=== PATIENT | female | born 1975 | race Caucasian/White ===

== ENCOUNTER → 2016-09-03 | Outpatient (CLI) | payer OTHER ==
[2016-09-03 09:05] LABS: Carbon Dioxide 22 mmol/L (22-30); Chloride 107 mmol/L (98-107); Glucose 106 mg/dL (74-99); Potassium 4.6 mmol/L (3.5-5.1); Sodium 142 mmol/L (137-145)
[2016-09-03 09:06] LABS: ALT 29 U/L (9-52); AST 17 U/L (14-36); Alkaline Phosphatase 102 U/L (38-126); Anion Gap 13 mmol/L; Blood Urea Nitrogen 14 mg/dL (7-17); Calcium 9.3 mg/dL (8.4-10.2); Cholesterol 177 mg/dL (<200); HDL Cholesterol 50 mg/dL (40-60); Non-African American GFR(MDRD) >60 (>60 ml/min/1.73 sqM); Total Bilirubin 0.4 mg/dL (0.2-1.3); Total Protein 7.4 g/dL (6.3-8.2); Triglycerides 117 mg/dL (<150)
== END | disposition home or self-care (01) ==
LOC: LABWHC1 08:18
PROVIDERS: ATTEND Internal Medicine Endocrinology, Diabetes & Metabolism
DX: E11.65 Type 2 diabetes mellitus with hyperglycemia (principal)
CPT/HCPCS: 36415; 80053; 80061; 82043

== ENCOUNTER → 2017-06-11 | Outpatient (CLI) | payer OTHER ==
[2017-06-11 09:18] LABS: ALT 24 U/L (9-52); AST 18 U/L (14-36); Albumin 3.9 g/dL (3.5-5.0); Alkaline Phosphatase 114 U/L (38-126); Anion Gap 10 mmol/L; Blood Urea Nitrogen 14 mg/dL (7-17); Calcium 8.8 mg/dL (8.4-10.2); Carbon Dioxide 26 mmol/L (22-30); Chloride 104 mmol/L (98-107); Cholesterol 153 mg/dL (<200); Glucose 111 mg/dL (74-99); HDL Cholesterol 47 mg/dL (40-60); LDL Cholesterol,Calculated 87 mg/dL (0-99); Potassium 4.4 mmol/L (3.5-5.1); Sodium 140 mmol/L (137-145); Total Bilirubin 0.2 mg/dL (0.2-1.3); Total Protein 6.9 g/dL (6.3-8.2); Triglycerides 96 mg/dL (<150)
== END | disposition home or self-care (01) ==
LOC: LABWHC1 08:02
PROVIDERS: ATTEND Internal Medicine Endocrinology, Diabetes & Metabolism
DX: E03.8 Other specified hypothyroidism (principal); E11.65 Type 2 diabetes mellitus with hyperglycemia
CPT/HCPCS: 36415; 80053; 80061; 84443

== ENCOUNTER → 2017-08-27 | Outpatient (CLI) | payer OTHER ==
--- NOTE | 2017-08-28 09:58 | MM ---
Reason for exam: screening (asymptomatic). Last mammogram was performed 5 years and 2 months ago. Physical Findings: A clinical breast exam by your physician is recommended on an annual basis and results should be correlated with mammographic findings. MG 3D Screening Mammo W/Cad Bilateral CC and MLO view(s) were taken. Prior study comparison: June 16, 2012, bilateral digital screening mammo w/CAD. The breast tissue is heterogeneously dense. This may lower the sensitivity of mammography. There is no discrete abnormality. No significant changes when compared with prior studies. ASSESSMENT: Negative, BI-RAD 1 RECOMMENDATION: Routine screening mammogram of both breasts in 1 year.
== END | disposition home or self-care (01) ==
LOC: RADMAMWWP 06:58
PROVIDERS: ATTEND Obstetrics & Gynecology
DX: Z12.31 Encounter for screening mammogram for malignant neoplasm of breast (principal)
CPT/HCPCS: 77063; 77067

== ENCOUNTER → 2017-11-20 | Outpatient (CLI) | payer OTHER ==
[2017-11-20 08:59] LABS: ALT 28 U/L (9-52); AST 21 U/L (14-36); Albumin 3.7 g/dL (3.5-5.0); Alkaline Phosphatase 89 U/L (38-126); Anion Gap 7 mmol/L; Blood Urea Nitrogen 12 mg/dL (7-17); Carbon Dioxide 26 mmol/L (22-30); Chloride 105 mmol/L (98-107); Cholesterol 164 mg/dL (<200); Glucose 116 mg/dL (74-99); HDL Cholesterol 52 mg/dL (40-60); LDL Cholesterol,Calculated 88 mg/dL (0-99); Potassium 4.5 mmol/L (3.5-5.1); Sodium 138 mmol/L (137-145); Total Bilirubin 0.2 mg/dL (0.2-1.3); Total Protein 6.8 g/dL (6.3-8.2); Triglycerides 118 mg/dL (<150)
[2017-11-20 16:02] LABS: Hemoglobin A1C 6.5 % (4.0-6.0)
[2017-11-20 17:03] LABS: Vitamin D 25 Hydroxy 16.4 ng/mL (30.0-100.0)
== END | disposition home or self-care (01) ==
LOC: LABWHC1 07:54
PROVIDERS: ATTEND Internal Medicine Endocrinology, Diabetes & Metabolism
DX: E11.65 Type 2 diabetes mellitus with hyperglycemia (principal); E03.8 Other specified hypothyroidism
CPT/HCPCS: 36415; 80053; 80061; 82043; 82306; 82570; 82607; 83036; 84443

== ENCOUNTER 2020-04-15 04:48 | Emergency (ER) | payer BC ==
--- NOTE | 2020-04-15 05:14 | ED ---
Abdominal Pain HPI - General Source: patient Mode of arrival: ambulatory Limitations: no limitations - History of Present Illness MD Complaint: abdominal pain Onset/Timin -: hour(s) Location: RUQ, epigastric Radiation: back Migration to: no migration Severity: severe Quality: aching Consistency: constant Improves With: nothing Worsens With: nothing Associated Symptoms: nausea <Eagle Ge - Last Filed: 04/15/20 06:31> <Latrell Martinez - Last Filed: 04/15/20 08:14> - General Chief Complaint: Abdominal Pain Stated Complaint: Abdominal pain, vomiting Time Seen by Provider: 04/15/20 04:53 - History of Present Illness Initial Comments: This patient is a 44-year-old woman presenting to be evaluated for upper abdominal pain. She states that it came on after she had eaten dinner, and has gotten progressively worse over the course of tonight. She has also developed nausea and vomiting. (Eagle Ge) - Related Data Home Medications Medication Instructions Recorded Confirmed Cetirizine HCl 10 mg PO HS 04/15/20 04/15/20 Levothyroxine Sodium [Synthroid] 150 mcg PO DAILY 04/15/20 04/15/20 Multivitamins, Thera [Multivitamin 1 tab PO DAILY 04/15/20 04/15/20 (formulary)] Naproxen Sodium 550 mg PO DAILY PRN 04/15/20 04/15/20 Omeprazole 40 mg PO HS 04/15/20 04/15/20 buPROPion HCL [buPROPion HCL SR] 150 mg PO BID 04/15/20 04/15/20 lisinopriL [Zestril] 5 mg PO HS 04/15/20 04/15/20 metFORMIN HCL ER [Glucophage Xr] 500 mg PO HS 04/15/20 04/15/20 Previous Rx's Medication Instructions Recorded Ondansetron [Zofran] 4 - 8 mg PO Q8HR PRN #15 tab 04/15/20 traMADol HCl [Ultram] 50 - 100 mg PO Q6H PRN #15 tab 04/15/20 Allergies Allergy/AdvReac Type Severity Reaction Status Date / Time No Known Allergies Allergy Verified 04/15/20 06:44 Review of Systems ROS Other: All systems not noted in ROS Statement are negative. Constitutional: Denies: fever, chills Respiratory: Denies: cough, dyspnea Cardiovascular: Denies: chest pain, palpitations Gastrointestinal: Reports: abdominal pain, nausea, vomiting. Denies: diarrhea, constipation, hematemesis, melena, hematochezia Genitourinary: Denies: dysuria, frequency, hematuria Musculoskeletal: Denies: back pain Skin: Denies: rash Neurological: Denies: headache, weakness, numbness <Eagle Ge - Last Filed: 04/15/20 06:31> ROS Other: All systems not noted in ROS Statement are negative. <Latrell Martinez - Last Filed: 04/15/20 08:14> ROS Statement: Those systems with pertinent positive or pertinent negative responses have been documented in the HPI. Past Medical History History of Any Multi-Drug Resistant Organisms: None Reported Past Psychological History: Depression Smoking Status: Never smoker Past Alcohol Use History: Rare Past Drug Use History: None Reported <RadhaEagle beal - Last Filed: 04/15/20 06:31> General Exam Limitations: no limitations General appearance: alert, in no apparent distress Head exam: Present: atraumatic, normocephalic Eye exam: Present: normal appearance. Absent: scleral icterus, conjunctival injection Respiratory exam: Present: normal lung sounds bilaterally. Absent: respiratory distress, wheezes, rales, rhonchi, stridor Cardiovascular Exam: Present: regular rate, normal rhythm, normal heart sounds. Absent: systolic murmur, diastolic murmur, rubs, gallop GI/Abdominal exam: Present: soft, tenderness, normal bowel sounds. Absent: distended, guarding, rebound, rigid, mass, pulsatile mass, hernia Extremities exam: Present: normal inspection, normal capillary refill. Absent: pedal edema, calf tenderness Back exam: Present: normal inspection. Absent: CVA tenderness (R), CVA tenderness (L) Neurological exam: Present: alert Skin exam: Present: warm, dry, intact, normal color. Absent: rash <Eagle Ge - Last Filed: 04/15/20 06:31> Course Vital Signs 04/15/20 04/15/20 04:52 06:21 Temperature 98.4 F Pulse Rate 98 90 Respiratory 20 18 Rate Blood Pressure 148/74 151/90 O2 Sat by Pulse 98 100 Oximetry Medical Decision Making - Lab Data Result diagrams: 04/15/20 05:13 04/15/20 05:13 <RadhaEagle beal - Last Filed: 04/15/20 06:31> - Lab Data Result diagrams: 04/15/20 05:13 04/15/20 05:13 <Latrell Martinez - Last Filed: 04/15/20 08:14> - Medical Decision Making The patient was seen and examined. Report was received from previous shift. Her computed tomography scan of the abdomen and pelvis did show gallstones. Her laboratory showed some anemia but no elevation of liver function studies. The gallbladder ultrasound came back showing multiple gallstones with the stone in the gallbladder neck but no pericholecystic fluid or gallbladder wall thickening. Common bile duct is normal. The patient is feeling much improved with Watkins. She refuses an IV as she states that she is scared of getting IVs and will have a panic attack. She appears stable for discharge home and outpatient surgical follow-up. She understands and agrees with this plan and leaves in no severe distress. Diet therapy is discussed and ultimately detail. Return parameters are discussed. (Latrell Martinez) - Lab Data Lab Results 04/15/20 04/15/20 04/15/20 Range/Units 05:13 05:13 05:47 WBC 9.4 (3.8-10.6) k/uL RBC 4.96 (3.80-5.40) m/uL Hgb 9.6 L (11.4-16.0) gm/dL Hct 31.4 L (34.0-46.0) % MCV 63.3 L (80.0-100.0) fL MCH 19.4 L (25.0-35.0) pg MCHC 30.6 L (31.0-37.0) g/dL RDW 18.7 H (11.5-15.5) % Plt Count 525 H (150-450) k/uL MPV 6.4 Neutrophils % 61 % Lymphocytes % 28 % Monocytes % 6 % Eosinophils % 2 % Basophils % 1 % Neutrophils # 5.8 (1.3-7.7) k/uL Lymphocytes # 2.6 (1.0-4.8) k/uL Monocytes # 0.5 (0-1.0) k/uL Eosinophils # 0.2 (0-0.7) k/uL Basophils # 0.1 (0-0.2) k/uL Hypochromasia Marked Poikilocytosis Slight Anisocytosis Slight Microcytosis Marked Sodium 137 (137-145) mmol/L Potassium 4.5 (3.5-5.1) mmol/L Chloride 104 (98-107) mmol/L Carbon Dioxide 24 (22-30) mmol/L Anion Gap 9 mmol/L BUN 14 (7-17) mg/dL Creatinine 0.84 (0.52-1.04) mg/dL Est GFR (CKD-EPI)AfAm >90 (>60 ml/min/1.73 sqM) Est GFR (CKD-EPI)NonAf 84 (>60 ml/min/1.73 sqM) Glucose 127 H (74-99) mg/dL Calcium 9.5 (8.4-10.2) mg/dL Total Bilirubin 0.3 (0.2-1.3) mg/dL AST 30 (14-36) U/L ALT 24 (4-34) U/L Alkaline Phosphatase 93 (38-126) U/L Total Protein 7.6 (6.3-8.2) g/dL Albumin 4.2 (3.5-5.0) g/dL Amylase 59 (30-110) U/L Lipase 165 (23-300) U/L Urine Color Yellow Urine Appearance Clear (Clear) Urine pH 5.5 (5.0-8.0) Ur Specific [place] 1.032 (1.001-1.035) Urine Protein Trace H (Negative) Urine Glucose (UA) Negative (Negative) Urine Ketones Negative (Negative) Urine Blood Negative (Negative) Urine Nitrite Negative (Negative) Urine Bilirubin Negative (Negative) Urine Urobilinogen <2.0 (<2.0) mg/dL Ur Leukocyte Esterase Negative (Negative) Urine HCG, Qual (Not Detectd) 04/15/20 Range/Units 05:47 WBC (3.8-10.6) k/uL RBC (3.80-5.40) m/uL Hgb (11.4-16.0) gm/dL Hct (34.0-46.0) % MCV (80.0-100.0) fL MCH (25.0-35.0) pg MCHC (31.0-37.0) g/dL RDW (11.5-15.5) % Plt Count (150-450) k/uL MPV Neutrophils % % Lymphocytes % % Monocytes % % Eosinophils % % Basophils % % Neutrophils # (1.3-7.7) k/uL Lymphocytes # (1.0-4.8) k/uL Monocytes # (0-1.0) k/uL Eosinophils # (0-0.7) k/uL Basophils # (0-0.2) k/uL Hypochromasia Poikilocytosis Anisocytosis Microcytosis Sodium (137-145) mmol/L Potassium (3.5-5.1) mmol/L Chloride (98-107) mmol/L Carbon Dioxide (22-30) mmol/L Anion Gap mmol/L BUN (7-17) mg/dL Creatinine (0.52-1.04) mg/dL Est GFR (CKD-EPI)AfAm (>60 ml/min/1.73 sqM) Est GFR (CKD-EPI)NonAf (>60 ml/min/1.73 sqM) Glucose (74-99) mg/dL Calcium (8.4-10.2) mg/dL Total Bilirubin (0.2-1.3) mg/dL AST (14-36) U/L ALT (4-34) U/L Alkaline Phosphatase (38-126) U/L Total Protein (6.3-8.2) g/dL Albumin (3.5-5.0) g/dL Amylase (30-110) U/L Lipase (23-300) U/L Urine Color Urine Appearance (Clear) Urine pH (5.0-8.0) Ur Specific [place] (1.001-1.035) Urine Protein (Negative) Urine Glucose (UA) (Negative) Urine Ketones (Negative) Urine Blood (Negative) Urine Nitrite (Negative) Urine Bilirubin (Negative) Urine Urobilinogen (<2.0) mg/dL Ur Leukocyte Esterase (Negative) Urine HCG, Qual Not Detected (Not Detectd) Disposition <Eagle Ge - Last Filed: 04/15/20 06:31> Is patient prescribed a controlled substance at d/c from ED?: Yes When asked, does pt state using other controlled substances?: No If prescribed controlled substance>3 days was MAPS reviewed?: Prescribed <3 Days Time of Disposition: 08:12 <Latrell Martinez - Last Filed: 04/15/20 08:14> Clinical Impression: Gallbladder colic, Gallstone, Acute abdominal pain, Hypertension, Anemia Disposition: HOME SELF-CARE Condition: Good Instructions (If sedation given, give patient instructions): Abdominal Pain (ED ), Gallstones (ED) Prescriptions: traMADol HCl [Ultram] 50 - 100 mg PO Q6H PRN #15 tab PRN Reason: Pain Ondansetron [Zofran] 4 - 8 mg PO Q8HR PRN #15 tab PRN Reason: Nausea Referrals: Tha Valle DO [Primary Care Provider] - 1-2 days Bon Khan DO [Doctor of Osteopathic Medicine] - 1-2 days
--- NOTE | 2020-04-15 05:48 | CT ---
EXAM: CT Abdomen and Pelvis Without Intravenous Contrast CLINICAL HISTORY: ITS.REASON CT Reason: abdominal pain TECHNIQUE: Axial computed tomography images of the abdomen and pelvis without intravenous contrast. CTDI is 32.589 mGy and DLP is 1699.9 mGy-cm. This CT exam was performed using one or more of the following dose reduction techniques: automated exposure control, adjustment of the mA and/or kV according to patient size, and/or use of iterative reconstruction technique. COMPARISON: No relevant prior studies available. FINDINGS: Lung bases: Unremarkable. No mass. No consolidation. ABDOMEN: Liver: Unremarkable. Gallbladder and bile ducts: Minimally calcified gallstones layering posteriorly in the gallbladder, extending to the gallbladder neck. No definite CT evidence for pericholecystic fluid or biliary dilatation. Pancreas: Unremarkable. No ductal dilation. Spleen: Unremarkable. No splenomegaly. Adrenals: Unremarkable. No mass. Kidneys and ureters: Unremarkable. No obstructing stones. No hydronephrosis. Stomach and bowel: Evaluation of the bowel mucosa is slightly limited without contrast; however, no definite focal asymmetry suggested. No evidence for bowel obstruction. PELVIS: Appendix: A normal caliber appendix incidentally noted inferiorly from the cecum in the right pelvis. Bladder: Unremarkable. No stones. Reproductive: Calcification in the left adnexa is presumed incidental. Detailed evaluation is limited. The unenhanced uterus and right adnexa is unremarkable. ABDOMEN and PELVIS: Intraperitoneal space: Unremarkable. No free air. No significant fluid collection. Bones/joints: No acute fracture. No dislocation. Soft tissues: Fat containing umbilical hernia Vasculature: Unremarkable. No abdominal aortic aneurysm. Lymph nodes: Unremarkable. No enlarged lymph nodes. IMPRESSION: 1. Minimally calcified gallstones layering posteriorly in the gallbladder, extending to the gallbladder neck. No definite CT evidence for pericholecystic fluid or biliary dilatation. If there is right upper quadrant tenderness or concern for acute cholecystitis, right upper quadrant ultrasound may provide additional detail in this region, as clinically appropriate. 2. Evaluation of the bowel mucosa is slightly limited without contrast; however, no definite focal asymmetry suggested. No evidence for bowel obstruction. No free intraperitoneal fluid or pneumoperitoneum. Normal caliber appendix incidentally noted.
[2020-04-15 05:50] LABS: ALT 24 U/L (4-34); AST 30 U/L (14-36); African American GFR (CKD) >90 (>60 ml/min/1.73 sqM); Albumin 4.2 g/dL (3.5-5.0); Alkaline Phosphatase 93 U/L (38-126); Amylase 59 U/L (30-110); Anion Gap 9 mmol/L; Blood Urea Nitrogen 14 mg/dL (7-17); Calcium 9.5 mg/dL (8.4-10.2); Carbon Dioxide 24 mmol/L (22-30); Chloride 104 mmol/L (98-107); Glucose 127 mg/dL (74-99); Lipase 165 U/L (23-300); Non-African American GFR(CKD) 84 (>60 ml/min/1.73 sqM); Potassium 4.5 mmol/L (3.5-5.1); Sodium 137 mmol/L (137-145); Total Bilirubin 0.3 mg/dL (0.2-1.3); Total Protein 7.6 g/dL (6.3-8.2)
[2020-04-15 05:56] LABS: Anisocytosis Slight; Basophils # (A) 0.1 k/uL (0-0.2); Basophils % (A) 1 %; Eosinophils # (A) 0.2 k/uL (0-0.7); Eosinophils % (A) 2 %; HCT 31.4 % (34.0-46.0); HGB 9.6 gm/dL (11.4-16.0); Hypochromasia Marked; Lymphocytes # (A) 2.6 k/uL (1.0-4.8); Lymphocytes % (A) 28 %; MCH 19.4 pg (25.0-35.0); MCHC 30.6 g/dL (31.0-37.0); MCV 63.3 fL (80.0-100.0); Mean Platelet Volume 6.4; Microcytosis Marked; Monocytes # (A) 0.5 k/uL (0-1.0); Monocytes % (A) 6 %; Neutrophils # (A) 5.8 k/uL (1.3-7.7); Neutrophils % (A) 61 %; Platelet Count 525 k/uL (150-450); Poikilocytosis Slight; RBC 4.96 m/uL (3.80-5.40); RDW 18.7 % (11.5-15.5); WBC 9.4 k/uL (3.8-10.6)
[2020-04-15 06:12] LABS: Appearance,Urine Clear (Clear); Bilirubin,Urine Negative (Negative); Blood,Urine Negative (Negative); Color,Urine Yellow; Glucose,Urine (UA) Negative (Negative); Ketones,Urine Negative (Negative); Leukocyte Esterase,Urine Negative (Negative); Nitrite,Urine Negative (Negative); PH, Urine 5.5 (5.0-8.0); Protein,Urine Trace (Negative); Specific Gravity,Urine 1.032 (1.001-1.035); Urobilinogen,Urine <2.0 mg/dL (<2.0)
[2020-04-15] MEDS ORDERED: HYDROcodone/APAP 5-325MG 1 EACH TAB PO STA (06:14)
[2020-04-15 06:22] VITALS: RESP 18
--- NOTE | 2020-04-15 07:37 | US ---
EXAMINATION TYPE: US abdomen limited DATE OF EXAM: 04/15/2020 COMPARISON: CT earlier today. CLINICAL HISTORY: attention RUQ. Abnormal CT. Abdominal pain radiating to back. EXAM MEASUREMENTS: Liver Length: 10.7 cm Gallbladder Wall: 0.3 cm CBD: 0.3 cm Right Kidney: 10.2 x 5.5 x 5.5 cm Pancreas: visualized portions wnl Liver: wnl Gallbladder: multiple stones with shadowing, there is at least one stone that did not move out of ne ck with multiple different positions. Evidence for sonographic Quinn's sign: Yes CBD: wnl Right Kidney: No hydronephrosis or masses seen Visualized pancreas slightly heterogeneous without mass or ductal dilatation. Visualized liver unrema rkable. Gallbladder shows intraluminal mobile shadowing gallstones. One stone is nonmobile per techno logist towards the gallbladder neck, likely corresponding to coronal image 55. No surrounding fluid. Wall thickness upper limits of normal. Positive sonographic Quinn's sign. No biliary dilatation. No right-sided hydronephrosis. IMPRESSION: Corresponding to CT there are intraluminal gallstones including nonmobile gallstone towar ds gallbladder neck. No convincing secondary ultrasound evidence for acute cholecystitis. However in patient with positive sonographic Quinn sign it cannot be entirely excluded, consider HIDA scan or s urgical exploration based on degree of clinical suspicion.
[2020-04-15 08:24] VITALS: BP 136/84; PULSE 80; TEMP 98
== END 2020-04-15 08:25 | disposition home or self-care (01) ==
LOC: EC 04:48
DX: K80.20 Calculus of gallbladder without cholecystitis without obstruction (principal); F32.9 Major depressive disorder, single episode, unspecified; D64.9 Anemia, unspecified; I10 Essential (primary) hypertension; Z79.899 Other long term (current) drug therapy
CPT/HCPCS: 36415; 74176; 76705; 80053; 81003; 81025; 82150; 83690; 85025; 99284

== ENCOUNTER 2020-05-08 21:44 | Emergency (ER) | payer BC ==
[2020-05-08] MEDS ORDERED: PANTOPRAZOLE 40 MG/10 ML VIAL IVP STA (22:27)
[2020-05-08] MEDS ORDERED: MORPHINE SULFATE 4 MG/ML SYRINGE IV STA (22:27)
[2020-05-08] MEDS ORDERED: KETOROLAC 15 MG/ML 1 ML VIAL IVP STA (22:27)
[2020-05-08] MEDS ORDERED: SODIUM CHLORIDE 0.9% 1,000 ML IV STA (22:27)
[2020-05-08] MEDS ORDERED: ONDANSETRON 4 MG/2 ML VIAL IVP STA (22:27)
--- NOTE | 2020-05-08 22:30 | ED ---
Abdominal Pain HPI - General Chief Complaint: Abdominal Pain Stated Complaint: Abd/Back Pain Time Seen by Provider: 05/08/20 22:26 Source: patient, RN notes reviewed, old records reviewed Mode of arrival: ambulatory Limitations: no limitations - History of Present Illness Initial Comments: This is a 44-year-old female for ER for evaluation regarding abdominal pain. History of biliary colic history of gallbladder disease. Patient is scheduled for surgery this week. Patient states pain is his increasing or worsening at home. Otherwise no new symptoms, pain is just like her prior gallbladder pain. She is taking Ultram with no help. Denying fevers having normal bowel movements and is tolerating food and water at home Complaint: abdominal pain (Right upper quadrant) -: month(s) Location: LUQ Radiation: RUQ Migration to: epigastric Severity: moderate Severity scale (1-10): 6 Quality: cramping, sharp Consistency: constant Improves With: nothing Worsens With: eating Context: recent surgery/procedure (Surgery plan for this week) Associated Symptoms: nausea - Related Data Home Medications Medication Instructions Recorded Confirmed Cetirizine HCl 10 mg PO HS 04/15/20 04/15/20 Levothyroxine Sodium [Synthroid] 150 mcg PO DAILY 04/15/20 04/15/20 Multivitamins, Thera [Multivitamin 1 tab PO DAILY 04/15/20 04/15/20 (formulary)] Naproxen Sodium 550 mg PO DAILY PRN 04/15/20 04/15/20 Omeprazole 40 mg PO HS 04/15/20 04/15/20 buPROPion HCL [buPROPion HCL SR] 150 mg PO BID 04/15/20 04/15/20 lisinopriL [Zestril] 5 mg PO HS 04/15/20 04/15/20 metFORMIN HCL ER [Glucophage Xr] 500 mg PO HS 04/15/20 04/15/20 Previous Rx's Medication Instructions Recorded Ondansetron [Zofran] 4 - 8 mg PO Q8HR PRN #15 tab 04/15/20 traMADol HCl [Ultram] 50 - 100 mg PO Q6H PRN #15 tab 04/15/20 HYDROcodone/APAP 5-325MG [[place] 1 tab PO Q6HR PRN #12 tab 05/09/20 5-325] Allergies Allergy/AdvReac Type Severity Reaction Status Date / Time No Known Allergies Allergy Verified 04/15/20 06:44 Review of Systems ROS Statement: Those systems with pertinent positive or pertinent negative responses have been documented in the HPI. ROS Other: All systems not noted in ROS Statement are negative. Past Medical History Additional Past Medical History / Comment(s): gallbladder issues History of Any Multi-Drug Resistant Organisms: None Reported Past Surgical History: Adenoidectomy, Section, Tonsillectomy Past Psychological History: Depression Smoking Status: Former smoker Past Alcohol Use History: Rare Past Drug Use History: None Reported General Exam Limitations: no limitations General appearance: alert, in no apparent distress Head exam: Present: atraumatic, normocephalic, normal inspection Eye exam: Present: normal appearance, PERRL, EOMI. Absent: scleral icterus, conjunctival injection, periorbital swelling ENT exam: Present: normal exam, mucous membranes moist Neck exam: Present: normal inspection. Absent: tenderness, meningismus, lymphadenopathy Respiratory exam: Present: normal lung sounds bilaterally. Absent: respiratory distress, wheezes, rales, rhonchi, stridor Cardiovascular Exam: Present: regular rate, normal rhythm, normal heart sounds. Absent: systolic murmur, diastolic murmur, rubs, gallop, clicks GI/Abdominal exam: Present: soft, normal bowel sounds. Absent: distended, tenderness, guarding, rebound, rigid Extremities exam: Present: normal inspection, full ROM, normal capillary refill. Absent: tenderness, pedal edema, joint swelling, calf tenderness Back exam: Present: normal inspection Neurological exam: Present: alert, oriented X3, CN II-XII intact Psychiatric exam: Present: normal affect, normal mood Skin exam: Present: warm, dry, intact, normal color. Absent: rash Course Vital Signs 05/08/20 05/08/20 05/09/20 22:13 23:16 01:53 Temperature 98.5 F 98.8 F Pulse Rate 86 90 80 Respiratory 22 18 18 Rate Blood Pressure 146/70 155/78 125/72 O2 Sat by Pulse 97 96 98 Oximetry - Reevaluation(s) Reevaluation #1: Medical records reviewed Patient is experiencing pain control currently feels good for discharge home Medical Decision Making - Medical Decision Making 44 female DF for evaluation patient Dese for evaluation regards to abdominal pain secondary to biliary colic. Patient feels comfortable with discharge - Lab Data Result diagrams: 05/08/20 22:47 05/08/20 22:47 Lab Results 05/08/20 05/08/20 05/08/20 Range/Units 22:47 22:47 22:47 WBC 10.7 H (3.8-10.6) k/uL RBC 5.01 (3.80-5.40) m/uL Hgb 9.3 L (11.4-16.0) gm/dL Hct 32.0 L (34.0-46.0) % MCV 63.8 L (80.0-100.0) fL MCH 18.5 L (25.0-35.0) pg MCHC 29.0 L (31.0-37.0) g/dL RDW 18.7 H (11.5-15.5) % Plt Count 561 H (150-450) k/uL MPV 6.6 Neutrophils % 74 % Lymphocytes % 18 % Monocytes % 4 % Eosinophils % 2 % Basophils % 0 % Neutrophils # 7.9 H (1.3-7.7) k/uL Lymphocytes # 1.9 (1.0-4.8) k/uL Monocytes # 0.4 (0-1.0) k/uL Eosinophils # 0.2 (0-0.7) k/uL Basophils # 0.0 (0-0.2) k/uL Hypochromasia Marked Poikilocytosis Slight Anisocytosis Slight Microcytosis Marked Sodium 138 (137-145) mmol/L Potassium 4.7 (3.5-5.1) mmol/L Chloride 102 (98-107) mmol/L Carbon Dioxide 27 (22-30) mmol/L Anion Gap 9 mmol/L BUN 16 (7-17) mg/dL Creatinine 0.67 (0.52-1.04) mg/dL Est GFR (CKD-EPI)AfAm >90 (>60 ml/min/1.73 sqM) Est GFR (CKD-EPI)NonAf >90 (>60 ml/min/1.73 sqM) Glucose 134 H (74-99) mg/dL Calcium 9.6 (8.4-10.2) mg/dL Total Bilirubin 0.4 (0.2-1.3) mg/dL AST 29 (14-36) U/L ALT 20 (4-34) U/L Alkaline Phosphatase 96 (38-126) U/L Total Protein 7.8 (6.3-8.2) g/dL Albumin 4.4 (3.5-5.0) g/dL Amylase 55 (30-110) U/L Lipase 70 (23-300) U/L Urine Color Yellow Urine Appearance Cloudy H (Clear) Urine pH 5.0 (5.0-8.0) Ur Specific [place] 1.032 (1.001-1.035) Urine Protein Trace H (Negative) Urine Glucose (UA) Negative (Negative) Urine Ketones Negative (Negative) Urine Blood Negative (Negative) Urine Nitrite Negative (Negative) Urine Bilirubin Negative (Negative) Urine Urobilinogen <2.0 (<2.0) mg/dL Ur Leukocyte Esterase Negative (Negative) Urine RBC 1 (0-5) /hpf Urine WBC 2 (0-5) /hpf Ur Squamous Epith Cells 4 (0-4) /hpf Amorphous Sediment Rare H (None) /hpf Urine Bacteria Rare H (None) /hpf Hyaline Casts 1 (0-2) /lpf Urine Mucus Moderate H (None) /hpf Disposition Clinical Impression: Gallbladder colic, Gallstone, Acute on chronic cholecystitis Disposition: HOME SELF-CARE Condition: Good Instructions (If sedation given, give patient instructions): Biliary Colic (ED) Prescriptions: HYDROcodone/APAP 5-325MG [[place] 5-325] 1 tab PO Q6HR PRN #12 tab PRN Reason: Pain Is patient prescribed a controlled substance at d/c from ED?: Yes When asked, does pt state using other controlled substances?: Yes If prescribed controlled substance>3 days was MAPS reviewed?: Prescribed <3 Days If opioid is for acute pain is fill amount 7 days or less?: Yes If Rx opioid, was Start Talking consent form obtained?: Yes Referrals: Prosper Curtis DO [Doctor of Osteopathic Medicine] - 1-2 days
[2020-05-08 22:56] LABS: Anisocytosis Slight; Basophils % (A) 0 %; Eosinophils # (A) 0.2 k/uL (0-0.7); Eosinophils % (A) 2 %; HGB 9.3 gm/dL (11.4-16.0); Hypochromasia Marked; Lymphocytes # (A) 1.9 k/uL (1.0-4.8); Lymphocytes % (A) 18 %; MCH 18.5 pg (25.0-35.0); MCV 63.8 fL (80.0-100.0); Mean Platelet Volume 6.6; Microcytosis Marked; Monocytes # (A) 0.4 k/uL (0-1.0); Monocytes % (A) 4 %; Neutrophils # (A) 7.9 k/uL (1.3-7.7); Neutrophils % (A) 74 %; Platelet Count 561 k/uL (150-450); Poikilocytosis Slight; RBC 5.01 m/uL (3.80-5.40); RDW 18.7 % (11.5-15.5); WBC 10.7 k/uL (3.8-10.6)
[2020-05-08 23:09] LABS: ALT 20 U/L (4-34); AST 29 U/L (14-36); African American GFR (CKD) >90 (>60 ml/min/1.73 sqM); Albumin 4.4 g/dL (3.5-5.0); Alkaline Phosphatase 96 U/L (38-126); Amylase 55 U/L (30-110); Anion Gap 9 mmol/L; Blood Urea Nitrogen 16 mg/dL (7-17); Calcium 9.6 mg/dL (8.4-10.2); Carbon Dioxide 27 mmol/L (22-30); Chloride 102 mmol/L (98-107); Glucose 134 mg/dL (74-99); Lipase 70 U/L (23-300); Non-African American GFR(CKD) >90 (>60 ml/min/1.73 sqM); Potassium 4.7 mmol/L (3.5-5.1); Sodium 138 mmol/L (137-145); Total Bilirubin 0.4 mg/dL (0.2-1.3); Total Protein 7.8 g/dL (6.3-8.2)
[2020-05-08 23:11] LABS: Amorphous Sediment,Urine Rare /hpf; Appearance,Urine Cloudy (Clear); Bacteria,Urine Rare /hpf; Bilirubin,Urine Negative (Negative); Blood,Urine Negative (Negative); Color,Urine Yellow; Glucose,Urine (UA) Negative (Negative); Hyaline Casts,Urine 1 /lpf (0-2); Ketones,Urine Negative (Negative); Leukocyte Esterase,Urine Negative (Negative); Mucus,Urine Moderate /hpf; Nitrite,Urine Negative (Negative); Protein,Urine Trace (Negative); RBC,Urine 1 /hpf (0-5); Specific Gravity,Urine 1.032 (1.001-1.035); Squamous Epithelial Cell,Urine 4 /hpf (0-4); Urobilinogen,Urine <2.0 mg/dL (<2.0); WBC,Urine 2 /hpf (0-5)
[2020-05-08 23:50] VITALS: RESP 18
--- NOTE | 2020-05-08 23:54 | US ---
EXAMINATION TYPE: US gallbladder DATE OF EXAM: 05/08/2020 COMPARISON: NONE CLINICAL HISTORY: pain. EXAM MEASUREMENTS: Liver Length: 14.1 cm Gallbladder Wall: 0.6 cm CBD: 0.4 cm Right Kidney: 11.0 cm Morbidly obese patient with extreme abdomen tenderness technically difficult study. Pancreas: Obscured by bowel gas Liver: Increased attenuation, decreased visualization of vessels suggestive of fatty infiltrate Gallbladder: stones, thickened wall Evidence for sonographic Quinn's sign: yes CBD: not well visualized due to overlying bowel gas/obesity Right Kidney: Inferior pole obscured by overlying bowel gas IMPRESSION: There are multiple gallstones with mild gallbladder wall thickening. This is consistent with acute an d chronic cholecystitis. No dilated ducts.
[2020-05-09] MEDS ORDERED: ACET/COD 300 MG/30 MG STARTER PACK 6 TAB BTL PO STA (00:34)
[2020-05-09] MEDS ORDERED: Acetaminophen-Codeine 300-30mg TAB PO STA (00:34)
[2020-05-09] MEDS ORDERED: ONDANSETRON 4 MG ODT STARTER PACK 2 TAB BTL PO STA (00:34)
[2020-05-09] MEDS ORDERED: HYDROcodone/APAP 5-325MG 1 EACH TAB PO STA (01:45)
[2020-05-09 01:55] VITALS: BP 125/72; PULSE 80; TEMP 98.8
== END 2020-05-09 01:57 | disposition home or self-care (01) ==
LOC: EC 21:44
DX: K80.12 Calculus of gallbladder with acute and chronic cholecystitis without obstruction (principal); F32.9 Major depressive disorder, single episode, unspecified; Z79.899 Other long term (current) drug therapy; Z90.89 Acquired absence of other organs; Z87.891 Personal history of nicotine dependence
CPT/HCPCS: 36415; 80053; 82150; 83690; 85025; 81001; 76705; 99285; 96374; 96375 ×3; 96361; J2270; J2405; J1885; C9113

== ENCOUNTER → 2020-11-15 | Outpatient (CLI) | payer OTHER ==
[2020-11-15 18:59] LABS: Hemoglobin A1C 5.6 % (4.0-6.0)
[2020-11-15 20:05] LABS: African American GFR (CKD) 120.4 (60.0-200.0); Albumin 4.2 g/dL (3.80-4.90); Albumin/Globulin Ratio 1.62 (1.60-3.17); Anion Gap 10.6 mmol/L (4.00-12.00); BUN/Creat Ratio 21.43 Ratio (12.00-20.00); Calcium 8.9 mg/dL (8.7-10.3); Carbon Dioxide 25.4 mmol/L (21.6-31.8); Chol/HDL Ratio 3.27; Globulin 2.6 g/dL (1.6-3.3); LDL Cholesterol,Calculated 89.8 mg/dL (0.0-131.0); Non-African American GFR(CKD) 103.9 (60.0-200.0); Potassium 4.7 mmol/L (3.5-5.5); Total Bilirubin 0.2 mg/dL (0.3-1.2); Total Protein 6.8 g/dL (6.2-8.2); VLDL Calculation 26.2 mg/dL (5.00-40.00)
[2020-11-15 20:14] LABS: T4, Free (Free Thyroxine) 1.3 ng/dL (0.80-1.80)
== END | disposition home or self-care (01) ==
LOC: LABWHC1 08:20
PROVIDERS: ATTEND Family Medicine
DX: E03.9 Hypothyroidism, unspecified (principal); I10 Essential (primary) hypertension; E11.9 Type 2 diabetes mellitus without complications
CPT/HCPCS: 36415; 80053; 80061; 83036; 84439; 84443

== ENCOUNTER → 2020-11-15 | Outpatient (CLI) | payer OTHER ==
[2020-11-15 08:57] LABS: Anisocytosis Slight; Basophils % (A) 0 %; Eosinophils # (A) 0.1 k/uL (0-0.7); Eosinophils % (A) 2 %; HGB 11.3 gm/dL (11.4-16.0); Hypochromasia Moderate; Lymphocytes # (A) 1.8 k/uL (1.0-4.8); Lymphocytes % (A) 30 %; MCH 24.1 pg (25.0-35.0); MCHC 30.4 g/dL (31.0-37.0); Microcytosis Slight; Monocytes # (A) 0.3 k/uL (0-1.0); Monocytes % (A) 5 %; Neutrophils # (A) 3.6 k/uL (1.3-7.7); Neutrophils % (A) 60 %; Platelet Count 349 k/uL (150-450); RBC 4.68 m/uL (3.80-5.40); RDW 19.2 % (11.5-15.5)
== END | disposition home or self-care (01) ==
LOC: LABPAT 08:15
PROVIDERS: ATTEND Obstetrics & Gynecology
DX: Z01.812 Encounter for preprocedural laboratory examination (principal)
CPT/HCPCS: 85025

== ENCOUNTER → 2020-11-18 | Day surgery (SDC) | payer BC, OTHER ==
[2020-11-15 09:13] VITALS: BMI 48.1
[~2020-11-18] MED LIST: DEXAMETHASONE SOD PHOSPHATE 4 MG/ML 1 ML VIAL IV ONE; HYDROmorphone 0.5 MG/0.5 ML SYRINGE IVP ONE; KETOROLAC 15 MG/ML 1 ML VIAL IVP ONE; KETOROLAC 15 MG/ML 1 ML VIAL ONE; LACTATED RINGERS 1,000 ML IV ONE; LACTATED RINGERS 1,000 ML IV SCH; LIDOCAINE 1% (10MG/ML) FOR IV START INTRADERMA PRN; LIDOCAINE 1% INJ 10MG/ML (20 ML MDV) ONE; MIDAZOLAM 2 MG/2 ML VIAL ONE; ONDANSETRON 4 MG/2 ML VIAL IVP ONE; ONDANSETRON 4 MG/2 ML VIAL ONE; PROPOFOL 10 MG/ML 20 ML VIAL IV ONE; Pre Op ABX Message 1 EACH MISC MISCELLANE ONE; SUCCINYLCHOLINE CHLORIDE 100 MG/5 ML SYR IV ONE; fentaNYL (PF) 50 MCG/ML 2 ML AMP ONE
--- NOTE | 2020-11-18 10:05 | P.HPOB ---
History of Present Illness H&P Date: 11/18/20 Chief Complaint: menorrhagia 44 year old presents for D&C hysteroscopy and endometrial ablation with [employer]. Review of Systems All systems: negative Constitutional: Denies chills, Denies fever Eyes: denies blurred vision, denies pain Ears, nose, mouth and throat: Denies headache, Denies sore throat Cardiovascular: Denies chest pain, Denies shortness of breath Respiratory: Denies cough Gastrointestinal: Denies abdominal pain, Denies diarrhea, Denies nausea, Denies vomiting Genitourinary: Denies dysuria, Denies hematuria Musculoskeletal: Denies myalgias Integumentary: Denies pruritus, Denies rash Neurological: Denies numbness, Denies weakness Psychiatric: Denies anxiety, Denies depression Endocrine: Denies fatigue, Denies weight change Past Medical History Past Medical History: Diabetes Mellitus, GERD/Reflux, Hypertension Additional Past Medical History / Comment(s): "pre-diabetic", heavy, frequent periods, anemia History of Any Multi-Drug Resistant Organisms: None Reported Past Surgical History: Adenoidectomy, Section, Cholecystectomy, Orthopedic Surgery, Tonsillectomy Additional Past Surgical History / Comment(s): D & C, nisha CTS, ganglion cysts removed Past Anesthesia/Blood Transfusion Reactions: Postoperative Nausea & Vomiting (PONV) Smoking Status: Former smoker Medications and Allergies Home Medications Medication Instructions Recorded Confirmed Type Cetirizine HCl 10 mg PO HS 04/15/20 11/15/20 History Levothyroxine Sodium [Synthroid] 150 mcg PO DAILY 04/15/20 11/15/20 History Multivitamins, Thera [Multivitamin 1 tab PO DAILY 04/15/20 11/15/20 History (formulary)] Omeprazole 40 mg PO HS 04/15/20 11/15/20 History buPROPion HCL [buPROPion HCL SR] 150 mg PO BID 04/15/20 11/15/20 History lisinopriL [Zestril] 5 mg PO HS 04/15/20 11/15/20 History metFORMIN HCL ER [Glucophage Xr] 500 mg PO HS 04/15/20 11/15/20 History Cholecalciferol [Vitamin D3 (25 25 mcg PO DAILY 11/15/20 11/15/20 History Mcg = 1000 Iu)] Iron 18 mg PO DAILY 11/15/20 11/15/20 History Allergies Allergy/AdvReac Type Severity Reaction Status Date / Time tramadol [From Ultram] AdvReac Nausea & Verified 11/15/20 09:15 Vomiting Exam Osteopathic Statement: *. No significant issues noted on an osteopathic structural exam other than those noted in the History and Physical/Consult. HEart: RRR Lungs: CTAB Abdomen: soft, nontender Extremeties: neg ace's Assessment and Plan (1) Menorrhagia Status: Acute Code(s): N92.0 - EXCESSIVE AND FREQUENT MENSTRUATION WITH REGULAR CYCLE SNOMED Code(s): 617574263 Plan: 1. D&C hysteroscopy and endometrial ablation with [employer]
[2020-11-18 11:56] LABS: Glucose,Whole Blood 101 mg/dL (75-99)
--- NOTE | 2020-11-18 13:03 | P.OP ---
Date of Procedure: 11/18/20 Preoperative Diagnosis: 1. menorrhagia Postoperative Diagnosis: 1. menorrhagia Procedure(s) Performed: D&C hysteroscopy endometrial ablation with NovaSure Anesthesia: JERRY Surgeon: Monica Peck Estimated Blood Loss (ml): 5 IV fluids (ml): 300 Urine output (ml): 15 Pathology: other (Endometrial curettings) Condition: stable Disposition: PACU Operative Findings: Uterus sounded to 10 cm. Adequate ablation after NovaSure Description of Procedure: Patient is taken the operating room where general anesthesia was obtained without difficulty. She was prepped and draped in normal sterile fashion dorsal lithotomy position, legs placed in the [employer] cane stirrups. Bladder was drained of all urine. Weighted speculum placed in the vagina and the anterior lip the cervix was grasped with serial tooth tenaculum. The uterus sounded to 10 cm and the cervix under 3.5 cm making the cavity length 6.5 cm. The cervix was dilated to #8 Hegar dilator. Hysteroscopy was then performed. Both ostia were visu alized and there was a smooth contour of the uterus. Sharp curet was then gently used to obtain endometrial curettings. The NovaSure was introduced into the uterus with a cavity length of 6.5 cm, width 2.5 cm. after cavity assessment was passed, the time of ablation was 50 seconds at [address]. Hysteroscopy was again performed and adequate ablation was noted. All instruments removed from the vagina. Patient tolerated the procedure well, sponge and instrument counts were correct 2 and she was taken to recovery in stable condition.
[2020-11-18 13:27] VITALS: TEMP 98.3
[2020-11-18 13:43] VITALS: RESP 16
[2020-11-18 14:13] VITALS: BP 132/86; PULSE 78
[2020-11-18 14:14] LABS: Glucose,Whole Blood 110 mg/dL (75-99)
== END | disposition home or self-care (01) ==
LOC: OR 10:43
PROVIDERS: ATTEND Obstetrics & Gynecology
DX: N92.0 Excessive and frequent menstruation with regular cycle (principal); E11.9 Type 2 diabetes mellitus without complications; K21.9 Gastro-esophageal reflux disease without esophagitis; I10 Essential (primary) hypertension; Z87.891 Personal history of nicotine dependence
CPT/HCPCS: 58563; 81025; 88305; J2250; J1100; J2405; J2001; J3010; J1885; J0330; J2704; J1170

== ENCOUNTER → 2021-08-03 | Outpatient (CLI) | payer OTHER ==
--- NOTE | 2021-08-04 14:29 | MM ---
Reason for exam: screening (asymptomatic). Last mammogram was performed 3 years and 11 months ago. Physical Findings: A clinical breast exam by your physician is recommended on an annual basis and results should be correlated with mammographic findings. MG 3D Screening Mammo W/Cad Bilateral CC and MLO view(s) were taken. Prior study comparison: August 27, 2017, bilateral MG 3d screening mammo w/cad. June 16, 2012, bilateral digital screening mammo w/CAD. Benign appearing bilateral calcifications. No significant changes when compared with prior studies. ASSESSMENT: Benign, BI-RAD 2 RECOMMENDATION: Routine screening mammogram of both breasts in 1 year.
== END | disposition home or self-care (01) ==
LOC: RADMAMWWP 08:00
PROVIDERS: ATTEND Family Medicine
DX: Z12.31 Encounter for screening mammogram for malignant neoplasm of breast (principal)
CPT/HCPCS: 77063; 77067

== ENCOUNTER → 2021-09-14 | Outpatient (CLI) | payer OTHER ==
[2021-09-14 14:08] LABS: Basophils # (A) 0.02 X 10*3/uL (0.00-0.10); Basophils % (A) 0.3 %; Eosinophils # (A) 0.17 X 10*3/uL (0.04-0.35); Eosinophils % (A) 2.4 %; HCT 38.2 % (37.2-46.3); HGB 11.8 g/dL (12.0-15.0); Immature Grans, Automated 0.3 %; Lymphocytes # (A) 2.08 X 10*3/uL (0.90-5.00); Lymphocytes % (A) 28.8 %; MCHC 30.9 g/dL (32.0-37.0); MCV 84.3 fL (80.0-97.0); Mean Platelet Volume 11.3 fL (9.5-12.2); Monocytes % (A) 6.9 %; NRBC Per 100 WBC 0 /100 WBCS (0.0-0.0); Neutrophils # (A) 4.44 X 10*3/uL (1.80-7.70); Neutrophils % (A) 61.3 %; Platelet Count 331 X 10*3/uL (140-440); RBC 4.53 X 10*6/uL (4.10-5.20); RDW 15.9 % (11.5-14.5); WBC 7.23 X 10*3/uL (4.50-10.00)
[2021-09-14 14:46] LABS: ALT 34 U/L (8-44); AST 21 U/L (13-35); Albumin 4.1 g/dL (3.8-4.9); Albumin/Globulin Ratio 1.55 (1.60-3.17); Alkaline Phosphatase 101 U/L (41-126); BUN/Creat Ratio 25.95 Ratio (12.00-20.00); Blood Urea Nitrogen 18.5 mg/dL (9.0-27.0); Calcium 9.1 mg/dL (8.7-10.3); Carbon Dioxide 24.4 mmol/L (20.0-27.5); Chloride 102 mmol/L (96-109); Chol/HDL Ratio 3.34 Ratio; Follicle Stimulating Hormone 7.1 mIU/mL; Globulin 2.7 g/dL (1.6-3.3); Glucose 106 mg/dL (70-110); LDL Cholesterol,Calculated 97.7 mg/dL (0.0-131.0); Non-African American GFR(CKD) 100.9 (60.0-200.0); Potassium 4.7 mmol/L (3.5-5.5); Sodium 139 mmol/L (135-145); Total Bilirubin <0.15 mg/dL (0.30-1.20); Total Protein 6.8 g/dL (6.2-8.2)
[2021-09-14 14:49] LABS: Luteinizing Hormone 7.8 mIU/mL
== END | disposition home or self-care (01) ==
LOC: LABWHC1 08:01
PROVIDERS: ATTEND Family Medicine
DX: Z00.00 Encounter for general adult medical examination without abnormal findings (principal); D64.9 Anemia, unspecified; E03.9 Hypothyroidism, unspecified; E11.9 Type 2 diabetes mellitus without complications; E66.01 Morbid (severe) obesity due to excess calories; I10 Essential (primary) hypertension; N95.1 Menopausal and female climacteric states
CPT/HCPCS: 36415; 80053; 80061; 82672; 83001; 83002; 83036; 84439; 84443; 85025

== ENCOUNTER → 2023-03-08 | Day surgery (SDC) | payer OTHER ==
[2023-03-06 13:14] VITALS: BMI 48.4
[~2023-03-08] MED LIST changes: -DEXAMETHASONE SOD PHOSPHATE 4 MG/ML 1 ML VIAL IV ONE; -HYDROmorphone 0.5 MG/0.5 ML SYRINGE IVP ONE; -KETOROLAC 15 MG/ML 1 ML VIAL IVP ONE; -KETOROLAC 15 MG/ML 1 ML VIAL ONE; -LACTATED RINGERS 1,000 ML IV ONE; -LIDOCAINE 1% INJ 10MG/ML (20 ML MDV) ONE; +LIDOCAINE 2% (PF) 20 MG/ML 5 ML VIAL ONE; +MIDAZOLAM 2 MG/2 ML VIAL IVP ONE; -MIDAZOLAM 2 MG/2 ML VIAL ONE; +NORFLURANE/PENTAFLUOROPROPANE 103.5 ML SPRAY (PAIN EASE) TOPICAL ONE; -ONDANSETRON 4 MG/2 ML VIAL IVP ONE; -ONDANSETRON 4 MG/2 ML VIAL ONE; -Pre Op ABX Message 1 EACH MISC MISCELLANE ONE; -SUCCINYLCHOLINE CHLORIDE 100 MG/5 ML SYR IV ONE; -fentaNYL (PF) 50 MCG/ML 2 ML AMP ONE
[2023-03-08 11:04] VITALS: TEMP 97.7
[2023-03-08 11:08] LABS: Glucose,Whole Blood 97 mg/dL (70-110)
--- NOTE | 2023-03-08 11:45 | P.PCN ---
Date of Procedure: 03/08/23 Procedure(s) Performed: Brief history: Patient is a pleasant 47-year-old white female scheduled for an elective upper endoscopy as well as colonoscopy as a part of evaluation of GERD/intermittent dysphagia to solids and screen for colon cancer Procedure performed: Esophagogastroduodenoscopy with biopsy Colonoscopy Preoperative diagnosis: GERD/intermittent dysphagia to solids Screening for colon cancer Anesthesia: MAC Procedure: After informed consent was obtained from the patient was brought into the endoscopy unit and IV sedation was administered by anesthesia under continuous monitoring. Initially upper endoscopy was done. The Olympus GF 160 video endoscope was inserted inserted into the mouth and esophagus intubated without any difficulty and was gradually advanced into the stomach and duodenum and carefully examined. The bulb and second part of the duodenum appeared normal. The scope was then withdrawn into the stomach adequately insufflated with air and upon careful examination the antrum had patchy areas of erythema which was biopsied. Mucosa of the body, cardia and fundus appeared normal. The scope was then withdrawn into the esophagus. The GE junction was located at 40 cm to the incisors. It appeared regular with no erythema erosions or ulcerations. Rest of the esophagus appeared normal. Abscesses were done from the distal esophagus. Patient tolerated the procedure well. At this time the patient continued to remain sedation. Initial digital rectal examination was normal. Olympus CF 160 video colonoscope was then inserted into the rectum and gradually advanced to the cecum without any difficulty. Careful examination was performed as the scope was gradually being withdrawn. The prep was excellent. The cecum, ascending colon, transverse colon, descending colon, sigmoid colon and rectum appeared normal. Retroflexion was performed in the rectum and no lesions were noted. Patient tolerated the procedure well. Impression: 1. Upper endoscopy revealed mild antral gastritis but no evidence of esophagitis or esophageal stricture 2. Colonoscopy was within normal limits with no evidence of colorectal neoplasia Recommendations: Findings of this examination were discussed with the patient as well as her family. She was advised to follow with the biopsy result. Continue with omeprazole 40 mg daily and 4 to follow antrum reflux measures. Recommend repeat screening colonoscopy in 10 years.
[2023-03-08 12:45] VITALS: BP 122/84; PULSE 79; RESP 16
== END ==
LOC: ORWHC2ENDO 10:20
PROVIDERS: ATTEND Internal Medicine Gastroenterology
DX: Z12.11 Encounter for screening for malignant neoplasm of colon (principal); K29.50 Unspecified chronic gastritis without bleeding; K31.7 Polyp of stomach and duodenum; I10 Essential (primary) hypertension; E11.9 Type 2 diabetes mellitus without complications; E07.9 Disorder of thyroid, unspecified; K21.9 Gastro-esophageal reflux disease without esophagitis; K44.9 Diaphragmatic hernia without obstruction or gangrene; E66.9 Obesity, unspecified; F32.A Depression, unspecified; Z79.84 Long term (current) use of oral hypoglycemic drugs; Z79.4 Long term (current) use of insulin; Z79.890 Hormone replacement therapy; Z79.899 Other long term (current) drug therapy; Z98.890 Other specified postprocedural states; Z68.42 Body mass index [BMI] 45.0-49.9, adult
CPT/HCPCS: 81025; 88305; 45378; 43239; J2250; J2704; J2001

== ENCOUNTER → 2023-08-08 | Outpatient (CLI) | payer OTHER ==
--- NOTE | 2023-08-09 09:23 | US ---
EXAMINATION TYPE: US thyroid st tissue head/neck DATE OF EXAM: 08/08/2023 COMPARISON: 12/21/2022 CLINICAL INDICATION: Female, 47 years old with history of E04.1 NONTOXIC SINGLE THYROID NODULE; thyro id nodule GLAND SIZE: Right Lobe: 2.9 x 1.2 x 1.8 cm Overall Parenchyma: homogeneous Left Lobe: 3.7 x 1.0 x 1.3 cm Overall Parenchyma: homogeneous Isthmus Thickness: cm NODULES RIGHT: # of nodules measured on right: 0 LEFT: # of nodules measured on left: 1 1. 1.1 X .7 x .8 cm, lower medial, solid or almost completely solid, hypoechoic nodule, which is wi misael than tall, with smooth margins, without echogenic foci. Prior size: 1.1 x .8 x 1.0 cm ISTHMUS: # of nodules measured in the isthmus: 0 Bilateral neck scanned, no evidence of lymphadenopathy. IMPRESSION: Stable single TR4 left thyroid nodule. No new abnormalities. 2017 ACR TI-RADS LEVEL: TR 4 *Highest TI-RADS level nodule reported
== END | disposition home or self-care (01) ==
LOC: RADUSWWP 12:34
PROVIDERS: ATTEND Internal Medicine Endocrinology, Diabetes & Metabolism
DX: E04.1 Nontoxic single thyroid nodule (principal)
CPT/HCPCS: 76536

== ENCOUNTER → 2023-10-10 | Outpatient (CLI) | payer OTHER ==
--- NOTE | 2023-10-13 15:56 | MM ---
Reason for Exam: Screening (asymptomatic). Last mammogram was performed 2 year(s) and 2 month(s) ago. Patient History: Menarche at age 9. First Full-Term at age 25. Currently using Hormonal Contraceptives, starting at age 44. Risk Values: Deepa 5 year model risk: 1.1%. NCI Lifetime model risk: 11.0%. Prior Study Comparison: 06/16/2012 Bilateral Screening Mammogram, [facility]. 08/27/2017 Bilateral Screening Mammogram, [facility]. 08/03/2021 Bilateral Screening Mammogram, [facility]. Tissue Density: The breasts are heterogeneously dense, which may obscure small masses. Findings: Analyzed By CAD. The pattern is symmetrical. No significant interval change No suspicious groups of microcalcifications, spiculated or lobular masses, architectural distortion or other secondary signs of malignancy are mammographically apparent. Overall Assessment: Benign, BI-RAD 2 Management: Screening Mammogram of both breasts in 1 year. A negative mammogram report should not preclude additional follow up of suspicious palpable abnormalities. Patient should continue monthly self breast exam. A clinical breast exam by your physician is recommended on an annual basis and results should be correlated with mammographic findings. Note on Deepa scores and lifetime risk: 1. A Deepa score greater than 3% is considered moderate risk. If this is the case, consider specialist referral to assess eligibility for a risk reducing agent. 2. If overall lifetime risk for the development of breast cancer is 20% or higher, the patient may qualify for future screening with alternating mammogram and breast MRI. Electronically signed and approved by: Travis Aiken D.O. Radiologis
== END | disposition home or self-care (01) ==
LOC: RADMAMWWP 14:17
PROVIDERS: ATTEND Family Medicine
DX: Z12.31 Encounter for screening mammogram for malignant neoplasm of breast (principal); R92.333 Mammographic heterogeneous density, bilateral breasts
CPT/HCPCS: 77063; 77067

== ENCOUNTER → 2023-11-08 | Outpatient (CLI) | payer OTHER | END | disposition home or self-care (01) | LOC: LABPRL 12:00 | PROVIDERS: ATTEND Family Medicine | DX: R79.89 Other specified abnormal findings of blood chemistry (principal) | CPT/HCPCS: 84450; 84460 ==

== ENCOUNTER 2024-01-27 22:26 | Observation (INO) | payer OTHER ==
[2024-01-27] MEDS: ONDANSETRON ODT 4 MG TAB PO STA (23:37)
--- NOTE | 2024-01-27 23:54 | ED ---
Dizziness HPI - General Source: patient Mode of arrival: wheelchair Limitations: no limitations <Patrick Campbell - Last Filed: 01/29/24 03:01> <Francisca Salmeron - Last Filed: 01/30/24 16:10> - General Chief Complaint: Syncope Stated Complaint: Syncope Time Seen by Provider: 01/27/24 22:41 - History of Present Illness Initial Comments: 48-year-old female with history of diabetes, GERD, hypertension, hypothyroidism presenting for evaluation after syncopal episode. Patient states that tonight she had a syncopal episode that was witnessed by her friend. She told her friend that she was starting to feel dizzy and then went to hug him. States that afterwards she woke up lying on the kitchen floor. He states that she was unconscious for about a minute and a half. She tasted vomit in her mouth and did lose control of her bladder. This morning she woke up with a frontal headache, states that this is not uncommon for her and she thought nothing of it. No cough, congestion, sore throat, fever, chills. No chest pain or difficulty breathing. She admits to dizziness and nausea, no vomiting. (Patrick Campbell) - Related Data Home Medications Medication Instructions Recorded Confirmed Levothyroxine Sodium [Synthroid] 150 mcg PO DAILY 04/15/20 01/28/24 Omeprazole 40 mg PO HS 04/15/20 01/28/24 Lisinopril/Hydrochlorothiazide 1 tab PO HS 03/06/23 01/28/24 [Zestoretic 10-12.5] Ascorbic Acid/Collagen Hydr 1 cap PO DAILY 01/28/24 01/28/24 [Collagen Plus Vit C Capsule] Loratadine [Claritin] 10 mg PO HS 01/28/24 01/28/24 Multivitamins, Thera [Multivitamin 1 tab PO DAILY 01/28/24 01/28/24 (formulary)] Inverness-3/Dha/Epa/Fish Oil [[place]verness-3 1 cap PO DAILY 01/28/24 01/28/24 Fish Oil 1,000 mg Sfgl] Tirzepatide [Mounjaro] 10 mg SQ ASENCIO 01/28/24 01/28/24 norethindrone-e.estradioL-iron 1 tab PO HS 01/28/24 01/28/24 [Aurovela Fe 1-20 Tablet] Previous Rx's Medication Instructions Recorded Acetaminophen Tab [Tylenol] 650 mg PO Q6HR PRN tab 01/29/24 Allergies Allergy/AdvReac Type Severity Reaction Status Date / Time tramadol [From Ultram] AdvReac Nausea & Verified 01/28/24 08:16 Vomiting Review of Systems ROS Other: All systems not noted in ROS Statement are negative. <Patrick Campbell - Last Filed: 01/29/24 03:01> ROS Other: All systems not noted in ROS Statement are negative. <Francisca Salmeron - Last Filed: 01/30/24 16:10> ROS Statement: Those systems with pertinent positive or pertinent negative responses have been documented in the HPI. Past Medical History Past Medical History: Diabetes Mellitus, GERD/Reflux, Hypertension, Thyroid Disorder Additional Past Medical History / Comment(s): HIATAL HERNIA History of Any Multi-Drug Resistant Organisms: None Reported Past Surgical History: Adenoidectomy, Section, Cholecystectomy, Tonsillectomy, Uterine Ablation Additional Past Surgical History / Comment(s): GANGLION CYST RT WRIST X 2 Past Anesthesia/Blood Transfusion Reactions: Previous Problems w/ Anesthesia Additional Past Anesthesia/Blood Transfusion Reaction / Comment(s): SEVERE MUSCLE CRAMPING AFTER UTERINE ABLATION 2020 Past Psychological History: Depression Smoking Status: Former smoker Past Alcohol Use History: None Reported Past Drug Use History: Marijuana - Past Family History Father Family Medical History: Cancer Additional Family Medical History / Comment(s): RARE BONE CANCER <Patrick Campbell - Last Filed: 01/29/24 03:01> General Exam Limitations: no limitations General appearance: alert, in no apparent distress Head exam: Present: atraumatic, normocephalic, normal inspection Eye exam: Present: normal appearance, PERRL, EOMI Pupils: Present: normal accommodation Neck exam: Present: normal inspection. Absent: meningismus Respiratory exam: Present: normal lung sounds bilaterally. Absent: respiratory distress, wheezes, rales, rhonchi, stridor Cardiovascular Exam: Present: regular rate, normal rhythm, normal heart sounds. Absent: systolic murmur, diastolic murmur, rubs, gallop, clicks Neurological exam: Present: alert, oriented X3 Expanded Patient oriented to: Present: person, place, time Speech: Present: fluid speech Cranial nerves: EOM's Intact: Normal, Tongue Deviation: Normal Cerebellar function: Finger to Nose: Normal, Heel to Davis: Normal Sensory exam: Upper Extremity Light Touch: Normal, Lower Extremity Light Touch: Normal Motor strength exam: RUE: 5, LUE: 5, RLE: 5, LLE: 5 Eye Response: (4) open spontaneously Motor Response: (6) obeys commands Verbal Response: (5) oriented Jaci Total: 15 Psychiatric exam: Present: normal affect, normal mood Skin exam: Present: warm, dry <Patrick Campbell - Last Filed: 01/29/24 03:01> Course Vital Signs 01/27/24 01/28/24 22:29 01:36 Temperature 97.8 F Pulse Rate 87 Respiratory 18 Rate Blood Pressure 127/85 Blood Pressure 141/90 [Right Arm Sitting] Blood Pressure 132/92 [Right Arm Standing] Blood Pressure 147/88 [Right Arm Supine] O2 Sat by Pulse 98 Oximetry Medical Decision Making - Lab Data Result diagrams: 01/27/24 23:42 01/27/24 23:42 <Patrick Campbell - Last Filed: 01/29/24 03:01> - Lab Data Result diagrams: 01/29/24 04:35 01/29/24 04:35 <Francisca Salmeron - Last Filed: 01/30/24 16:10> - Medical Decision Making Was pt. sent in by a medical professional or institution ([facility], [employer], urgent care, hospital, or residential...) When possible be specific @ -No Did you speak to anyone other than the patient for history (EMS, parent, family, police, friend...)? What history was obtained from this source @ -No Did you review nursing and triage notes (agree or disagree)? Why? @ -I reviewed and agree with nursing and triage notes Were old charts reviewed (outside hosp., previous admission, EMS record, old EKG, old radiological studies, urgent care reports/EKG's, residential records)? Report findings @ -No old charts were reviewed Differential Diagnosis (chest pain, altered mental status, abdominal pain women, abdominal pain men, vaginal bleeding, weakness, fever, dyspnea, syncope, headache, dizziness, GI bleed, back pain, seizure, CVA, palpatations, mental health, musculoskeletal)? @ -MDM Differential Syncope: Valvular disease, hypertrophic cardiomyopathy, pulmonary embolism, tamponade, tachycardia, bradycardia, TX, hypovolemia, hemorrhage, dissection, anemia, intracranial hemorrhage, seizure, hypoglycemia, carbon monoxide poisoning this is not meant to be an all-inclusive list. EKG interpreted by me (3pts min.). @ -EKG shows sinus rhythm ventricular rate 81. VA interval 162. QRS 113. QT 379. QTc 417. X-rays interpreted by me (1pt min.). @ -Chest x-ray shows no acute process CT interpreted by me (1pt min.). @ -CT shows no acute intracranial hemorrhage or midline shift. There is mild nonspecific white matter change felt present. This can be better evaluated with nonemergent MRI if desired U/S interpreted by me (1pt. min.). @ -None done What testing was considered but not performed or refused? (CT, X-rays, U/S, labs)? Why? @ -None What meds were considered but not given or refused? Why? @ -None Did you discuss the management of the patient with other professionals (professionals i.e. , PA, [employer] MACHINE HELPER, lab, RT, psych nurse, social media assistant, senior firewall engineer, teacher, special forces officer, bdc manager)? Give summary @ -My attending spoke with the [facility] provider on-call accepts admission Was smoking cessation discussed for >3mins.? @ -No Was critical care preformed (if so, how long)? @ -No Were there social determinants of health that impacted care today? How? (Homelessness, low income, unemployed, alcoholism, drug addiction, transportation, low edu. Level, literacy, decrease access to med. care, alf, rehab)? @ -No Was there de-escalation of care discussed even if they declined (Discuss DNR or withdrawal of care, Hospice)? DNR status @ -No What co-morbidities impacted this encounter? (DM, HTN, Smoking, COPD, CAD, Cancer, CVA, ARF, Chemo, Hep., AIDS, mental health diagnosis, sleep apnea, morb id obesity)? @ -None Was patient admitted / discharged? Hospital course, mention meds given and rou te, prescriptions, significant lab abnormalities, going to OR and other pertinent info. @ -48-year-old female presenting with chief complaint of syncopal episode. She is having continued dizziness and nausea. History and physical examination are conducted. No focal neurological deficits. WBC 12.3. Sodium 133 and potassium 3.3, patient is receiving IV fluids and Cater. Negative troponin. EKG shows sinus rhythm. Negative chest x-ray and brain CT. negative orthostatic vitals. Upon reassessment after Zofran and meclizine patient reports that her dizziness has improved but is still not completely alleviated. States that she had to walk very slowly when going to the bathroom. Given that the patient is still experiencing dizziness and she lost control of her bladder during her syncopal episode I believe she should be admitted for MRI and evaluation by neurology. Will consult cardiology as well. Patient is agreeable with this plan. I discussed this case with my attending Dr. Salmeron Undiagnosed new problem with uncertain prognosis? @ -No Drug Therapy requiring intensive monitoring for toxicity (Heparin, Nitro, Insulin, Cardizem)? @ -No Were any procedures done? @ -No Diagnosis/symptom? @ -Syncope, dizziness Acute, or Chronic, or Acute on Chronic? @ -Acute Uncomplicated (without systemic symptoms) or Complicated (systemic symptoms)? @ -Complicated Side effects of treatment? @ -No Exacerbation, Progression, or Severe Exacerbation? @ -No Poses a threat to life or bodily function? How? (Chest pain, [place], [place], pneumonia, PE, COPD, DKA, ARF, appy, cholecystitis, CVA, Diverticulitis, Homicidal, Suicidal, threat to staff... and all critical care pts) @ -Potentially (Patrick Campbell) - Lab Data Lab Results 01/27/24 01/27/24 01/27/24 Range/Units 23:42 23:42 23:42 WBC 12.3 H (3.8-10.6) k/uL RBC 4.46 (3.80-5.40) m/uL Hgb 13.9 (11.4-16.0) gm/dL Hct 39.8 (34.0-46.0) % MCV 89.2 (80.0-100.0) fL MCH 31.3 (25.0-35.0) pg MCHC 35.0 (31.0-37.0) g/dL RDW 13.1 (11.5-15.5) % Plt Count 268 (150-450) k/uL MPV 7.8 Neutrophils % 79 % Lymphocytes % 15 % Monocytes % 4 % Eosinophils % 1 % Basophils % 0 % Neutrophils # 9.7 H (1.3-7.7) k/uL Lymphocytes # 1.8 (1.0-4.8) k/uL Monocytes # 0.5 (0-1.0) k/uL Eosinophils # 0.1 (0-0.7) k/uL Basophils # 0.0 (0-0.2) k/uL PT 10.5 (10.0-12.5) sec INR 0.9 (<1.2) APTT 24.4 (22.0-30.0) sec Sodium 133 L (137-145) mmol/L Potassium 3.3 L (3.5-5.1) mmol/L Chloride 98 (98-107) mmol/L Carbon Dioxide 27 (22-30) mmol/L Anion Gap 8 mmol/L BUN 18 H (7-17) mg/dL Creatinine 0.77 (0.52-1.04) mg/dL Est GFR (CKD-EPI)AfAm >90 (>60 ml/min/1.73 sqM) Est GFR (CKD-EPI)NonAf >90 (>60 ml/min/1.73 sqM) Glucose 114 H (74-99) mg/dL Plasma Lactic Acid Rico (0.7-2.0) mmol/L Calcium 9.1 (8.4-10.2) mg/dL Magnesium 1.7 (1.6-2.3) mg/dL Total Bilirubin 0.4 (0.2-1.3) mg/dL AST 32 (14-36) U/L ALT 51 H (4-34) U/L Alkaline Phosphatase 63 (38-126) U/L Troponin I (0.000-0.034) ng/mL Total Protein 6.9 (6.3-8.2) g/dL Albumin 3.9 (3.5-5.0) g/dL Urine Color Urine Appearance (Clear) Urine pH (5.0-8.0) Ur Specific Kuna (1.001-1.035) Urine Protein (Negative) Urine Glucose (UA) (Negative) Urine Ketones (Negative) Urine Blood (Negative) Urine Nitrite (Negative) Urine Bilirubin (Negative) Urine Urobilinogen (<2.0) mg/dL Ur Leukocyte Esterase (Negative) Urine WBC (0-5) /hpf Ur Squamous Epith Cells (0-4) /hpf Amorphous Sediment (None) /hpf Urine Bacteria (None) /hpf 01/27/24 01/27/24 01/28/24 Range/Units 23:42 23:42 00:30 WBC (3.8-10.6) k/uL RBC (3.80-5.40) m/uL Hgb (11.4-16.0) gm/dL Hct (34.0-46.0) % MCV (80.0-100.0) fL MCH (25.0-35.0) pg MCHC (31.0-37.0) g/dL RDW (11.5-15.5) % Plt Count (150-450) k/uL MPV Neutrophils % % Lymphocytes % % Monocytes % % Eosinophils % % Basophils % % Neutrophils # (1.3-7.7) k/uL Lymphocytes # (1.0-4.8) k/uL Monocytes # (0-1.0) k/uL Eosinophils # (0-0.7) k/uL Basophils # (0-0.2) k/uL PT (10.0-12.5) sec INR (<1.2) APTT (22.0-30.0) sec Sodium (137-145) mmol/L Potassium (3.5-5.1) mmol/L Chloride (98-107) mmol/L Carbon Dioxide (22-30) mmol/L Anion Gap mmol/L BUN (7-17) mg/dL Creatinine (0.52-1.04) mg/dL Est GFR (CKD-EPI)AfAm (>60 ml/min/1.73 sqM) Est GFR (CKD-EPI)NonAf (>60 ml/min/1.73 sqM) Glucose (74-99) mg/dL Plasma Lactic Acid Rico 1.5 (0.7-2.0) mmol/L Calcium (8.4-10.2) mg/dL Magnesium (1.6-2.3) mg/dL Total Bilirubin (0.2-1.3) mg/dL AST (14-36) U/L ALT (4-34) U/L Alkaline Phosphatase (38-126) U/L Troponin I <0.012 (0.000-0.034) ng/mL Total Protein (6.3-8.2) g/dL Albumin (3.5-5.0) g/dL Urine Color Colorless Urine Appearance Clear (Clear) Urine pH 6.0 (5.0-8.0) Ur Specific Kuna 1.005 (1.001-1.035) Urine Protein Negative (Negative) Urine Glucose (UA) Negative (Negative) Urine Ketones Negative (Negative) Urine Blood Small H (Negative) Urine Nitrite Negative (Negative) Urine Bilirubin Negative (Negative) Urine Urobilinogen <2.0 (<2.0) mg/dL Ur Leukocyte Esterase Negative (Negative) Urine WBC 1 (0-5) /hpf Ur Squamous Epith Cells 3 (0-4) /hpf Amorphous Sediment Rare H (None) /hpf Urine Bacteria Few H (None) /hpf Disposition Time of Disposition: 01:51 <Patrick Campbell - Last Filed: 01/29/24 03:01> <Francisca Salmeron - Last Filed: 01/30/24 16:10> Clinical Impression: Syncope, Vertigo Disposition: ADMITTED IP TO THIS HOSP Condition: Fair
--- NOTE | 2024-01-27 23:55 | XR ---
EXAMINATION TYPE: XR chest 2V DATE OF EXAM: 01/27/2024 COMPARISON: NONE HISTORY: Syncope TECHNIQUE: Frontal and lateral views of the chest are obtained. FINDINGS: There is no focal air space opacity, pleural effusion, or pneumothorax seen. The cardiac silhouette size is within normal limits. The osseous structures are intact. IMPRESSION: No acute cardiopulmonary process. [facility], , 01/27/2024 11:53 PM
[2024-01-27 23:59] LABS: Basophils % (A) 0 %; Eosinophils # (A) 0.1 k/uL (0-0.7); Eosinophils % (A) 1 %; HCT 39.8 % (34.0-46.0); HGB 13.9 gm/dL (11.4-16.0); Lymphocytes # (A) 1.8 k/uL (1.0-4.8); Lymphocytes % (A) 15 %; MCH 31.3 pg (25.0-35.0); MCV 89.2 fL (80.0-100.0); Mean Platelet Volume 7.8; Monocytes # (A) 0.5 k/uL (0-1.0); Monocytes % (A) 4 %; Neutrophils # (A) 9.7 k/uL (1.3-7.7); Neutrophils % (A) 79 %; Platelet Count 268 k/uL (150-450); RBC 4.46 m/uL (3.80-5.40); RDW 13.1 % (11.5-15.5); WBC 12.3 k/uL (3.8-10.6)
--- NOTE | 2024-01-28 00:03 | CT ---
EXAMINATION TYPE: CT brain wo con DATE OF EXAM: 01/27/2024 HISTORY: syncopal episodes CT DLP: 1154.5 mGycm. Automated Exposure Control for Dose Reduction was Utilized. TECHNIQUE: CT scan of the head is performed without contrast. COMPARISON: None. FINDINGS: There is no acute intracranial hemorrhage or midline shift identified. Ventricles and sul ci within normal limits in size for patient's age. There is mild low-attenuation in the periventricu lar white matter. The globes are intact and the visualized sinuses are clear. IMPRESSION: No acute intracranial hemorrhage or midline shift. There is mild nonspecific white sheryl er change felt present. This can be better evaluated with nonemergent MRI if desired. [facility], , 01/28/2024 12:00 AM
[2024-01-28] MEDS: MECLIZINE 12.5 MG TAB PO STA (00:09)
[2024-01-28 00:15] LABS: INR 0.9 (<1.2); Partial Thromboplastin Time 24.4 sec (22.0-30.0); Prothrombin Time 10.5 sec (10.0-12.5)
[2024-01-28 00:25] LABS: ALT 51 U/L (4-34); AST 32 U/L (14-36); African American GFR (CKD) >90 (>60 ml/min/1.73 sqM); Albumin 3.9 g/dL (3.5-5.0); Alkaline Phosphatase 63 U/L (38-126); Anion Gap 8 mmol/L; Blood Urea Nitrogen 18 mg/dL (7-17); Calcium 9.1 mg/dL (8.4-10.2); Carbon Dioxide 27 mmol/L (22-30); Chloride 98 mmol/L (98-107); Glucose 114 mg/dL (74-99); Magnesium 1.7 mg/dL (1.6-2.3); Non-African American GFR(CKD) >90 (>60 ml/min/1.73 sqM); Potassium 3.3 mmol/L (3.5-5.1); Sodium 133 mmol/L (137-145); Total Bilirubin 0.4 mg/dL (0.2-1.3); Total Protein 6.9 g/dL (6.3-8.2)
[2024-01-28 01:20] LABS: Amorphous Sediment,Urine Rare /hpf; Appearance,Urine Clear (Clear); Bacteria,Urine Few /hpf; Bilirubin,Urine Negative (Negative); Blood,Urine Small (Negative); Color,Urine Colorless; Glucose,Urine (UA) Negative (Negative); Ketones,Urine Negative (Negative); Leukocyte Esterase,Urine Negative (Negative); Nitrite,Urine Negative (Negative); Protein,Urine Negative (Negative); Specific Gravity,Urine 1.005 (1.001-1.035); Squamous Epithelial Cell,Urine 3 /hpf (0-4); Urobilinogen,Urine <2.0 mg/dL (<2.0); WBC,Urine 1 /hpf (0-5)
[2024-01-28] MEDS ORDERED: ONDANSETRON 4 MG/2 ML VIAL IVP PRN (01:48)
[2024-01-28] MEDS ORDERED: NALOXONE 0.4 MG/ML 1 ML VIAL IV PRN (01:48)
[2024-01-28] MEDS: POTASSIUM CHLORIDE ER 20 MEQ TAB.ER PO STA (01:50)
[2024-01-28] MEDS: diazePAM 5 MG TAB PO STA (02:24)
--- NOTE | 2024-01-28 09:51 | P.CRDCN ---
History of Present Illness History of present illness: HISTORY OF PRESENT ILLNESS: This is a 48-year-old female with a past medical history significant for hypertension, hypothyroidism, and obesity. 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 We have been asked to see the patient in consultation for syncope. Patient examined at the bedside by Dr. Harris. Apparently, yesterday patient was with a friend when she began to feel dizzy and lightheaded. The patient reports she then passed out onto the floor. She does report loss of consciousness. She states that she did have urinary incontinence. Patient denied having any chest pain or pressure. She denied having any shortness of breath. She denies having any palpitations. Vital signs are stable this morning. Telemetry reveals sinus mechanism. DIAGNOSTICS: - EKG reveals sinus mechanism with no signs of acute ischemia - Chest xray negative for acute process - Laboratory data: WBC 12.3. Hemoglobin 13.9. Platelet count 268. Sodium 133. Potassium 3.3. BUN 18. Creatinine 0.77. Lactic acid 1.7. Troponin negative x 1. - Current home cardiac medications include lisinoprilhydrochlorothiazide 10- 12.5 mg at night - No previous echocardiogram, stress test, or cardiac catheterization available in EMR for review REVIEW OF SYSTEMS: At the time of my exam: CONSTITUTIONAL: Denies fever or chills. HEENT: Denies blurred vision, vision changes, or eye pain. Denies hemoptysis CARDIOVASCULAR: Denies chest pain. Denies orthopnea. Denies PND. Denies palpitations RESPIRATORY: Denies shortness of breath. GASTROINTESTINAL: Denies abdominal pain. Denies nausea or vomiting. HEMATOLOGIC: Denies bleeding disorders. GENITOURINARY: Denies any blood in urine. SKIN: Denies pruitis. Denies rash. PHYSICAL EXAM: VITAL SIGNS: Reviewed. GENERAL: Well-developed in no acute distress. HEENT: Head is normocephalic. Pupils are equal, round. Sclerae anicteric. Mucous membranes of the mouth are moist. Neck supple. No JVD or thyromegaly LUNGS: Respirations even and unlabored. Lungs essentially clear to auscultation bilaterally. HEART: Regular rate and rhythm. S1 and S2 heard. ABDOMEN: Soft. Nondistended. Nontender. EXTREMITIES: Normal range of motion. No clubbing or cyanosis. Peripheral pulses intact. No lower extremity edema NEUROLOGIC: Awake and alert. Oriented x 3. ASSESSMENT: Syncope with urinary incontinence, rule out seizure activity Hypertension Hypothyroidism Obesity: BMI 38.2 PLAN: Orthostatic blood pressures obtained and were negative Obtain 2D echo to assess cardiac structure and function Obtain additional troponin Check D-dimer Await neurology consultation Continue telemetry monitoring to assess for any arrhythmias Further recommendations pending patient course Nurse practitioner note has been reviewed by physician. Signing provider agrees with the documented findings, assessment, and plan of care documented by BOARD LAYER as a scribe. Past Medical History Past Medical History: Diabetes Mellitus, GERD/Reflux, Hypertension, Thyroid Disorder Additional Past Medical History / Comment(s): HIATAL HERNIA History of Any Multi-Drug Resistant Organisms: None Reported Past Surgical History: Adenoidectomy, Section, Cholecystectomy, Tonsillectomy, Uterine Ablation Additional Past Surgical History / Comment(s): GANGLION CYST RT WRIST X 2 Past Anesthesia/Blood Transfusion Reactions: Previous Problems w/ Anesthesia Additional Past Anesthesia/Blood Transfusion Reaction / Comment(s): SEVERE MUSCLE CRAMPING AFTER UTERINE ABLATION 2020 Past Psychological History: Depression Smoking Status: Former smoker Past Alcohol Use History: None Reported Additional Past Alcohol Use History / Comment(s): QUIT SMOKING 2009 Past Drug Use History: Marijuana - Past Family History Father Family Medical History: Cancer Additional Family Medical History / Comment(s): RARE BONE CANCER Medications and Allergies Home Medications Medication Instructions Recorded Confirmed Type Levothyroxine Sodium [Synthroid] 150 mcg PO DAILY 04/15/20 01/28/24 History Omeprazole 40 mg PO HS 04/15/20 01/28/24 History buPROPion HCL [buPROPion HCL SR] 150 mg PO BID 04/15/20 01/28/24 History Lisinopril/Hydrochlorothiazide 1 tab PO HS 03/06/23 01/28/24 History [Zestoretic 10-12.5] Ascorbic Acid/Collagen Hydr 1 cap PO DAILY 01/28/24 01/28/24 History [Collagen Plus Vit C Capsule] Loratadine [Claritin] 10 mg PO HS 01/28/24 01/28/24 History Multivitamins, Thera [Multivitamin 1 tab PO DAILY 01/28/24 01/28/24 History (formulary)] [place]-3/Dha/Epa/Fish Oil [[place]-3 1 cap PO DAILY 01/28/24 01/28/24 History Fish Oil 1,000 mg Sfgl] Tirzepatide [Mounjaro] 10 mg SQ ASENCIO 01/28/24 01/28/24 History norethindrone-e.estradioL-iron 1 tab PO HS 01/28/24 01/28/24 History [Aurovela Fe 1-20 Tablet] Allergies Allergy/AdvReac Type Severity Reaction Status Date / Time tramadol [From Ultram] AdvReac Nausea & Verified 01/28/24 08:16 Vomiting Physical Exam Vitals: Vital Signs Temp Pulse Pulse Resp BP BP BP 01/28/24 07:33 98.3 F 89 15 115/76 01/28/24 07:05 98.5 F 84 16 100/65 01/28/24 04:02 18 01/28/24 03:29 97.9 F 75 18 01/28/24 03:20 97.8 F 75 18 131/88 01/28/24 01:36 141/90 01/27/24 22:29 97.8 F 87 18 127/85 BP BP BP Pulse Ox 01/28/24 07:33 97 01/28/24 07:05 97 01/28/24 04:02 01/28/24 03:29 120/82 99 01/28/24 03:20 99 01/28/24 01:36 132/92 147/88 01/27/24 22:29 98 Intake and Output 01/27/24 01/28/24 01/28/24 22:59 06:59 14:59 Other: Voiding Method Toilet # Voids 1 1 Weight 94.801 kg 94.801 kg Results 01/27/24 23:42 01/27/24 23:42 Cardiac Enzymes 01/27/24 01/27/24 Range/Units 23:42 23:42 AST 32 (14-36) U/L Troponin I <0.012 (0.000-0.034) ng/mL Coagulation 01/27/24 Range/Units 23:42 PT 10.5 (10.0-12.5) sec APTT 24.4 (22.0-30.0) sec CBC 01/27/24 Range/Units 23:42 WBC 12.3 H (3.8-10.6) k/uL RBC 4.46 (3.80-5.40) m/uL Hgb 13.9 (11.4-16.0) gm/dL Hct 39.8 (34.0-46.0) % Plt Count 268 (150-450) k/uL Comprehensive Metabolic Panel 01/27/24 Range/Units 23:42 Sodium 133 L (137-145) mmol/L Potassium 3.3 L (3.5-5.1) mmol/L Chloride 98 (98-107) mmol/L Carbon Dioxide 27 (22-30) mmol/L BUN 18 H (7-17) mg/dL Creatinine 0.77 (0.52-1.04) mg/dL Glucose 114 H (74-99) mg/dL Calcium 9.1 (8.4-10.2) mg/dL AST 32 (14-36) U/L ALT 51 H (4-34) U/L Alkaline Phosphatase 63 (38-126) U/L Total Protein 6.9 (6.3-8.2) g/dL Albumin 3.9 (3.5-5.0) g/dL Current Medications Generic Name Dose Route Start Last Admin Trade Name Freq PRN Reason Stop Dose Admin Acetaminophen 650 mg 01/28/24 01:48 Acetaminophen Tab 325 Mg Tab PO Q6HR PRN Mild Pain or Fever > 100.5 Naloxone HCl 0.2 mg 01/28/24 01:48 Naloxone 0.4 Mg/Ml 1 Ml Vial IV Q2M PRN Opioid Reversal Ondansetron HCl 4 mg 01/28/24 01:48 Ondansetron 4 Mg/2 Ml Vial IVP Q8HR PRN Nausea And Vomiting Intake and Output 01/27/24 01/28/24 01/28/24 22:59 06:59 14:59 Other: Voiding Method Toilet # Voids 1 1 Weight 94.801 kg 94.801 kg 01/27/24 23:42 01/27/24 23:42
[2024-01-28] MEDS: LEVOTHYROXINE 75 MCG TAB PO SCH (10:06)
[2024-01-28 11:47] VITALS: RESP 16
[2024-01-28 12:00] LABS: Glucose,Whole Blood 125 mg/dL (70-110)
--- NOTE | 2024-01-28 15:43 | P.HPIM ---
History of Present Illness H&P Date: 01/28/24 This is a 48-year-old female who presented to the emergency department with a syncopal event with concerns of hypoglycemia versus possible seizure. Patient reports she did become incontinent of urine and vomited in her mouth. Patient was also noticing to have extreme dizziness prior to the event. Patient reports she follows with Dr. Valle in the outpatient setting with a past medical history of diabetes mellitus, GERD, hypertension, thyroid disorder, depression, obesity. In the ER patient underwent a brain CT which shows no acute intracranial hemorrhage or midline shift a mild nonspecific white matter change felt present, EKG showed sinus rhythm, labs revealed a mildly elevated white count of 12.3, hemoglobin stable at 13.9, platelets 268, D-dimer 0.26, sodium 133, potassium 3.3, creatinine 0.77, blood sugar was 114, lactic acid 1.5, calcium 9.1, magnesium 1.7, troponin x 2 have been negative and urinalysis was negative. Patient was admitted under observation with concerns of syncope and possible seizure activity with neurology and cardiology on consult. Patient was evaluated by cardiology early this morning and a 2D echo was ordered at this time. REVIEW OF SYSTEMS: CONSTITUTIONAL: No fever, no malaise, no fatigue. HEENT: No recent visual problems or hearing problems. Denied any sore throat. CARDIOVASCULAR: No chest pain, orthopnea, PND, no palpitations, no syncope. PULMONARY: No shortness of breath, no cough, no hemoptysis. GASTROINTESTINAL: No diarrhea, no nausea, no vomiting, no abdominal pain. NEUROLOGICAL: No headaches, no weakness, no numbness. Reports of dizziness intermittently with unexplained weakness HEMATOLOGICAL: Denies any bleeding or petechiae. GENITOURINARY: Denies any burning micturition, frequency, or urgency. MUSCULOSKELETAL/RHEUMATOLOGICAL: Denies any joint pain, swelling, or any muscle pain. ENDOCRINE: Denies any polyuria or polydipsia. The rest of the 14-point review of systems is negative. PHYSICAL EXAMINATION: GENERAL: The patient is alert and oriented x3, not in any acute distress. Well developed, well nourished. Obese HEENT: Pupils are round and equally reacting to light. EOMI. No scleral icterus. No conjunctival pallor. Normocephalic, atraumatic. No pharyngeal erythema. No thyromegaly. CARDIOVASCULAR: S1 and S2 muffled PULMONARY: Chest is clear to auscultation, no wheezing or crackles. ABDOMEN: Soft, obese, nontender, nondistended, normoactive bowel sounds. No palpable organomegaly. MUSCULOSKELETAL: No joint swelling or deformity. EXTREMITIES: No cyanosis, clubbing, or pedal edema. NEUROLOGICAL: Gross neurological examination did not reveal any focal deficits. SKIN: No rashes. Assessment: syncopal event with loss of consciousness for about 1 to 1-1/2 minutes with incontinence of urine and witnessed with some vomiting, rule out seizure activity History of diabetes mellitus, type II GERD Hypertension Thyroid disorder History of depression Obesity with a BMI of 38.2 GI prophylaxis DVT prophylaxis Full code Plan: Patient was admitted under observation for concerns of syncope and possible seizure-like activity. Cardiology following ordered a 2D echo which is pending and also continued telemetry monitoring. Troponins have been negative Neurology consulted recommending EEG and MRI. Per neurology no EEG techs available and will likely be performed on 01/29/2024 Will follow-up with repeat labs and replace electrolytes per protocol Continue monitoring Accu-Cheks before meals and at bedtime and will continue with sliding scale and adjust insulins accordingly Encouraged increase activity as tolerated Possible discharge planning in the next 24 to 48 hours The impression and plan of care has been dictated by Shelly Reaves, Nurse Practitioner as directed. Dr. Loreta MD I have performed a history and examination and MDM of this patient, discussed the same with the dictator, and agree with the dictator's assessment and plan as written ,documented as a scribe. Based on total visit time, I have performed more than 50% of the visit. Past Medical History Past Medical History: Diabetes Mellitus, GERD/Reflux, Hypertension, Thyroid Disorder Additional Past Medical History / Comment(s): HIATAL HERNIA History of Any Multi-Drug Resistant Organisms: None Reported Past Surgical History: Adenoidectomy, Section, Cholecystectomy, Tonsillectomy, Uterine Ablation Additional Past Surgical History / Comment(s): GANGLION CYST RT WRIST X 2 Past Anesthesia/Blood Transfusion Reactions: Previous Problems w/ Anesthesia Additional Past Anesthesia/Blood Transfusion Reaction / Comment(s): SEVERE MUSCLE CRAMPING AFTER UTERINE ABLATION 2020 Past Psychological History: Depression Smoking Status: Former smoker Past Alcohol Use History: None Reported Additional Past Alcohol Use History / Comment(s): QUIT SMOKING 2009 Past Drug Use History: Marijuana - Past Family History Father Family Medical History: Cancer Additional Family Medical History / Comment(s): RARE BONE CANCER Medications and Allergies Home Medications Medication Instructions Recorded Confirmed Type Levothyroxine Sodium [Synthroid] 150 mcg PO DAILY 04/15/20 01/28/24 History Omeprazole 40 mg PO HS 04/15/20 01/28/24 History buPROPion HCL [buPROPion HCL SR] 150 mg PO BID 04/15/20 01/28/24 History Lisinopril/Hydrochlorothiazide 1 tab PO HS 03/06/23 01/28/24 History [Zestoretic 10-12.5] Ascorbic Acid/Collagen Hydr 1 cap PO DAILY 01/28/24 01/28/24 History [Collagen Plus Vit C Capsule] Loratadine [Claritin] 10 mg PO HS 01/28/24 01/28/24 History Multivitamins, Thera [Multivitamin 1 tab PO DAILY 01/28/24 01/28/24 History (formulary)] [place]-3/Dha/Epa/Fish Oil [[place]-3 1 cap PO DAILY 01/28/24 01/28/24 History Fish Oil 1,000 mg Sfgl] Tirzepatide [Mounjaro] 10 mg SQ ASENCIO 01/28/24 01/28/24 History norethindrone-e.estradioL-iron 1 tab PO HS 01/28/24 01/28/24 History [Aurovela Fe 1-20 Tablet] Allergies Allergy/AdvReac Type Severity Reaction Status Date / Time tramadol [From Ultram] AdvReac Nausea & Verified 01/28/24 08:16 Vomiting Physical Exam Vitals: Vital Signs Temp Pulse Pulse Resp BP BP BP 01/28/24 07:33 98.3 F 89 15 115/76 01/28/24 07:05 98.5 F 84 16 100/65 01/28/24 04:02 18 01/28/24 03:29 97.9 F 75 18 01/28/24 03:20 97.8 F 75 18 131/88 01/28/24 01:36 141/90 01/27/24 22:29 97.8 F 87 18 127/85 BP BP BP Pulse Ox 01/28/24 07:33 97 01/28/24 07:05 97 01/28/24 04:02 01/28/24 03:29 120/82 99 01/28/24 03:20 99 01/28/24 01:36 132/92 147/88 01/27/24 22:29 98 Intake and Output 01/27/24 01/28/24 01/28/24 22:59 06:59 14:59 Intake Total 118 Balance 118 Intake: Oral 118 Other: Voiding Method Toilet # Voids 1 1 Weight 94.801 kg 94.801 kg Results CBC & Chem 7: 01/27/24 23:42 01/27/24 23:42 Labs: Abnormal Lab Results - Last 24 Hours (Table) 01/27/24 01/27/24 01/28/24 Range/Units 23:42 23:42 00:30 WBC 12.3 H (3.8-10.6) k/uL Neutrophils # 9.7 H (1.3-7.7) k/uL Sodium 133 L (137-145) mmol/L Potassium 3.3 L (3.5-5.1) mmol/L BUN 18 H (7-17) mg/dL Glucose 114 H (74-99) mg/dL ALT 51 H (4-34) U/L Urine Blood Small H (Negative) Amorphous Sediment Rare H (None) /hpf Urine Bacteria Few H (None) /hpf Thrombosis Risk Factor Assmnt - DVT/VTE Prophylaxis DVT/VTE Prophylaxis: Pharmacologic Prophylaxis ordered - Choose All That Apply Any of the Below Risk Factors Present?: Yes Each Factor Represents 1 point: Age 41-60 years, Obesity (BMI >25) Thrombosis Risk Factor Assessment Total Risk Factor Score: 2 Thrombosis Risk Factor Assessment Level: Low Risk Assessment and Plan Time with Patient: Greater than 30
[2024-01-28] MEDS ORDERED: DEXTROSE 50% SYRINGE 50 ML IVP PRN ×2 (15:44)
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
[2024-01-28 17:14] LABS: Glucose,Whole Blood 93 mg/dL (70-110)
[2024-01-28] MEDS: INSULIN ASPART (NovoLOG) 100 UNIT/ML VIAL SQ SCH (17:40)
[2024-01-28] MEDS: LORATADINE 10 MG TAB PO SCH (19:57)
[2024-01-28] MEDS: LISINOPRIL-HCTZ 10-12.5 MG 1 EACH TAB PO SCH (19:57)
[2024-01-28] MEDS: PANTOPRAZOLE 40 MG TABLET PO SCH (19:58)
[2024-01-28] MEDS: NORETHINDRONE E ESTRADIOL IRON PO SCH (20:00)
[2024-01-28] MEDS: buPROPion SR 150 MG TABLET.ER PO SCH (20:00)
[2024-01-28 20:05] LABS: Glucose,Whole Blood 107 mg/dL (70-110)
[2024-01-29] MEDS: ACETAMINOPHEN TAB 325 MG TAB PO PRN (05:48)
[2024-01-29 06:12] LABS: Glucose,Whole Blood 85 mg/dL (70-110)
[2024-01-29 08:44] LABS: ALT 50 U/L (8-44); AST 24 U/L (13-35); Albumin 3.7 g/dL (3.8-4.9); Albumin/Globulin Ratio 1.37 Ratio (1.60-3.17); Alkaline Phosphatase 64 U/L (41-126); BUN/Creat Ratio 14.75 Ratio (12.00-20.00); Basophils # (A) 0.02 X 10*3/uL (0.00-0.10); Basophils % (A) 0.3 %; Blood Urea Nitrogen 11.8 mg/dL (9.0-27.0); Calcium 8.9 mg/dL (8.7-10.3); Carbon Dioxide 24.8 mmol/L (21.6-31.8); Chloride 102 mmol/L (96-109); Eosinophils # (A) 0.12 X 10*3/uL (0.04-0.35); Eosinophils % (A) 1.7 %; Globulin 2.7 g/dL (1.6-3.3); Glucose 101 mg/dL (70-110); HCT 38.9 % (37.2-46.3); HGB 13.3 g/dL (12.0-15.0); Lymphocytes # (A) 2.93 X 10*3/uL (0.90-5.00); Lymphocytes % (A) 41.2 %; MCHC 34.2 g/dL (32.0-37.0); MCV 87.8 FL (80.0-97.0); Magnesium 1.9 mg/dL (1.5-2.4); Mean Platelet Volume 10.7 FL (9.5-12.2); Monocytes % (A) 8.4 %; NRBC Per 100 WBC 0 X 10*3/uL (0.00-0.01); Neutrophils # (A) 3.44 X 10*3/uL (1.80-7.70); Neutrophils % (A) 48.3 %; Platelet Count 284 X 10*3/uL (140-440); Potassium 3.4 mmol/L (3.5-5.5); RBC 4.43 X 10*6/uL (4.10-5.20); RDW 13.2 % (11.5-14.5); Sodium 139 mmol/L (135-145); Total Bilirubin 0.2 mg/dL (0.3-1.2); Total Protein 6.4 g/dL (6.2-8.2); WBC 7.12 X 10*3/uL (4.50-10.00)
[2024-01-29] MEDS: MULTIVITAMINS, THERA 1 EACH TAB PO SCH (08:58)
--- NOTE | 2024-01-29 09:20 | MR ---
EXAMINATION TYPE: MR brain wo/w con DATE OF EXAM: 01/29/2024 7:30 AM COMPARISON: 01/27/2024. CLINICAL INDICATION: Female, 48 years old with history of seizure; PHH, seizure. TECHNIQUE: Multi planar, multi sequence imaging was performed through the brain including: T1, T2, In version recovery, susceptibility weighted imaging and gradient echo imaging and Diffusion weighted im aging. The patient was then given intravenous contrast and multi planar, T1 fat-saturation images wer e obtained. IV Contrast: 9 mL Gadavist FINDINGS: The funez-white junctions, ventricular system, basal cisterns appear unremarkable. Diffusion-weighted imaging shows no evidence of restricted diffusion to suggest acute/subacute infarct. Intracranial ar terial flow voids are maintained. Midline structures show no abnormality. Scattered foci of high T2 s ignal intensity are seen within the periventricular white matter. The susceptibility weighted images do not reveal any evidence for micro-hemorrhage. After administration of gadolinium, no abnormal enha ncement is seen. The bone marrow signal is within normal limits. Paranasal sinuses and mastoid air cells: No significant paranasal sinus disease. Visualized orbits: Orbital contents are intact. IMPRESSION: 1. No evidence of intracranial mass, acute/subacute infarct, or abnormal enhancement. 2. Nonspecific white matter changes, likely related to small vessel ischemic disease. [facility], , 01/29/2024 9:18 AM
--- NOTE | 2024-01-29 11:03 | CA ---
Transthoracic Echo Report Name: Christy Holm Age: 48 Gender: F : 1975 Exam Date: 01/28/2024 09:52 Exam Location: [facility] [place] [facility] Ht (in): 62 Wt (lb): 209 Ordering Physician: Deisi Suarez Attending/Referring Phys: [id number], Daniela [employer] Sabi Charles RDCS Procedure CPT: Indications: LV function, syncope Cardiac Hx: Technical Quality: Fair Contrast 1: Total Dose (mL): Contrast 2: Total Dose (mL): MEASUREMENTS (Male / Female) Normal Values 2D ECHO LV Diastolic Diameter PLAX 4.5 cm 4.2 - 5.9 / 3.9 - 5.3 cm LV Systolic Diameter PLAX 2.4 cm IVS Diastolic Thickness 0.9 cm 0.6 - 1.0 / 0.6 - 0.9 cm LVPW Diastolic Thickness 1.2 cm 0.6 - 1.0 / 0.6 - 0.9 cm LV Relative Wall Thickness 0.4 RV Internal Dim ED PLAX 3.4 cm LA Volume 51.1 cm??? 18 - 58 / 22 - 52 cm??? LA Volume Index 24.5 cm???/m??? 16 - 28 cm???/m??? M-MODE Aortic Root Diameter MM 2.9 cm LA Systolic Diameter MM 3.6 cm LA Ao Ratio MM 1.2 AV Cusp Separation MM 2.3 cm DOPPLER AV Peak Velocity 144.7 cm/s AV Peak Gradient 8.4 mmHg AV Mean Velocity 106.9 cm/s AV Mean Gradient 4.9 mmHg AV Velocity Time Integral 28.5 cm LVOT Peak Velocity 119.8 cm/s LVOT Peak Gradient 5.7 mmHg LVOT Velocity Time Integral 23.4 cm MV Area PHT 3.5 cm??? Mitral E Point Velocity 58.3 cm/s Mitral A Point Velocity 88.7 cm/s Mitral E to A Ratio 0.7 MV Deceleration Time 219.3 ms MV E' Velocity 5.3 cm/s Mitral E to MV E' Ratio 11.0 TR Peak Velocity 176.9 cm/s TR Peak Gradient 12.5 mmHg Right Ventricular Systolic Press 17.5 mmHg FINDINGS Left Ventricle Mildly increased left ventricular wall thickness. Left ventricular cavity size normal. Normal left ventricular systolic function with no obvious regional wall motion abnormalities. Left ventricular ejection fraction is estimated at 55-60 %. Normal left ventricular diastolic filling pattern. Right Ventricle Normal right ventricular size and function. Right ventricular systolic pressure within normal limits. Right Atrium Normal right atrial size. Left Atrium Normal left atrial size. Mitral Valve Structurally normal mitral valve. No mitral stenosis or prolapse. Trace to mild mitral regurgitation. Aortic Valve Trileaflet aortic valve. No aortic valve stenosis or regurgitation. Tricuspid Valve Structurally normal tricuspid valve. Mild tricuspid regurgitation. Pulmonic Valve Structurally normal pulmonic valve. Trace pulmonic regurgitation. Pericardium No pericardial effusion. Aorta Normal size aortic root and proximal ascending aorta. CONCLUSIONS Normal LV function Previewed by: Dr. Alejandro Harris MD (Electronically Signed) Final Date: 29 January 2024 11:02
--- NOTE | 2024-01-29 12:09 | P.PN ---
Subjective HISTORY OF PRESENT ILLNESS: This is a 48-year-old female with a past medical history significant for hypertension, hypothyroidism, and obesity. 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 We have been asked to see the patient in consultation for syncope. Patient examined at the bedside by Dr. Harris. Apparently, yesterday patient was with a friend when she began to feel dizzy and lightheaded. The patient reports she then passed out onto the floor. She does report loss of consciousness. She states that she did have urinary incontinence. Patient denied having any chest pain or pressure. She denied having any shortness of breath. She denies having any palpitations. Vital signs are stable this morning. Telemetry reveals sinus mechanism. DIAGNOSTICS: - EKG reveals sinus mechanism with no signs of acute ischemia - Chest xray negative for acute process - Laboratory data: WBC 12.3. Hemoglobin 13.9. Platelet count 268. Sodium 133. Potassium 3.3. BUN 18. Creatinine 0.77. Lactic acid 1.7. Troponin negative x 1. - Current home cardiac medications include lisinoprilhydrochlorothiazide 10- 12.5 mg at night - No previous echocardiogram, stress test, or cardiac catheterization available in EMR for review 01/29/2024 Patient examined this morning at the bedside. Patient currently denies chest pain or pressure. She denies shortness of breath. She denies any further episodes of syncope. Vital signs are stable. Echocardiogram completed revealing ejection fraction 55 to 60%, trace to mild MR, mild TR. MRI of the brain completed with no evidence of acute mass or infarct. PHYSICAL EXAM: VITAL SIGNS: Reviewed. GENERAL: Well-developed in no acute distress. HEENT: Head is normocephalic. Pupils are equal, round. Sclerae anicteric. Mucous membranes of the mouth are moist. Neck supple. No JVD or thyromegaly LUNGS: Respirations even and unlabored. Lungs essentially clear to auscultation bilaterally. HEART: Regular rate and rhythm. S1 and S2 heard. ABDOMEN: Soft. Nondistended. Nontender. EXTREMITIES: Normal range of motion. No clubbing or cyanosis. Peripheral pulses intact. No lower extremity edema NEUROLOGIC: Awake and alert. Oriented x 3. ASSESSMENT: Syncope with urinary incontinence, likely seizure Hypertension Hypothyroidism Obesity: BMI 38.2 PLAN: Orthostatic blood pressures obtained and were negative 2D echo obtained and reviewed Neurology following. EEG pending. Patient is currently stable from a cardiac perspective Further recommendations pending patient course Nurse practitioner note has been reviewed by physician. Signing provider agrees with the documented findings, assessment, and plan of care documented by BOLOGNA LACER as a scribe. Objective - Vital Signs Vital signs: Vital Signs Temp 97.8 F 01/29/24 07:00 Pulse 79 01/29/24 07:00 Resp 16 01/29/24 07:00 BP 106/72 01/29/24 07:00 Pulse Ox 98 01/29/24 07:00 FiO2 Intake & Output 01/28/24 01/29/24 01/29/24 18:59 06:59 18:59 Intake Total 236 118 Balance 236 118 Intake: Oral 236 118 Other: Voiding Method Toilet Toilet Toilet # Voids 3 1 - Labs CBC & Chem 7: 01/29/24 04:35 01/29/24 04:35 Labs: Abnormal Lab Results - Last 24 Hours (Table) 01/29/24 Range/Units 04:35 Potassium 3.4 L (3.5-5.5) mmol/L Anion Gap 12.20 H (4.00-12.00) mmol/L Total Bilirubin 0.2 L (0.3-1.2) mg/dL ALT 50 H (8-44) U/L Albumin 3.7 L (3.8-4.9) g/dL Albumin/Globulin Ratio 1.37 L (1.60-3.17) Ratio
[2024-01-29 12:15] LABS: Glucose,Whole Blood 92 mg/dL (70-110)
[2024-01-29 13:55] VITALS: BP 107/72; PULSE 74; TEMP 98.6
[2024-01-29] MEDS: MEGESTROL 40 MG TAB PO SCH (16:08)
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
--- NOTE | 2024-01-30 03:21 | EEG ---
ELECTROENCEPHALOGRAM REPORT CLINICAL HISTORY: This is a 48-year-old woman with a syncopal episode. The video EEG is obtained to evaluate for seizure epileptiform activity. RELEVANT MEDICATION: The patient is not on any antiseizure medication. EEG TYPE: This is a routine 21 channel EEG with video using the 10/20 electrode placement system. DESCRIPTION: Wakefulness is obtained. During awake state, the posterior-dominant rhythm consists of [id number] voltage of 9 to 9.5 hertz activity that is well modulated, well sustained. There is no physiological stage 2 sleep architecture. There is no focal slowing. Interictal and ictal is none. ACTIVATION PROCEDURE: Photic stimulation did not evoke a posterior driving response. There is no abnormality during the photic stimulation. Hyperventilation is not performed. CLINICAL INTERPRETATION: This is a normal routine EEG. There is no focal slowing, epileptiform discharge, or seizure on the EEG. A normal routine EEG does not rule out underlying epilepsy. Clinical correlation is recommended. SUSI / AMBIKA: [id number] /
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
== END 2024-01-29 16:07 | disposition home or self-care (01) ==
LOC: EC 22:26 → 6NMEDSUR 01-28 01:50
PROVIDERS: ADMIT Hospitalist; ATTEND Hospitalist
DX: R55 Syncope and collapse (principal); R32 Unspecified urinary incontinence; E11.9 Type 2 diabetes mellitus without complications; K21.9 Gastro-esophageal reflux disease without esophagitis; I10 Essential (primary) hypertension; E03.9 Hypothyroidism, unspecified; E66.9 Obesity, unspecified; Z68.38 Body mass index [BMI] 38.0-38.9, adult; F32.A Depression, unspecified; Z79.890 Hormone replacement therapy; Z87.820 Personal history of traumatic brain injury; Z87.891 Personal history of nicotine dependence
CPT/HCPCS: 99285; 36415; 95816; 93005; 93306; 85379; 80053 ×2; 82607; 82746; 83605; 83735 ×2; 84484 ×2; 85025 ×2; 85610; 85730; 81001; 83036; 71046; 70450; 70553; G0378 ×2; A9585

== ENCOUNTER 2024-06-02 00:58 | Emergency (ER) | payer OTHER ==
[2024-06-02] MEDS: FAMOTIDINE 20 MG/2 ML VIAL IV STA (02:05)
[2024-06-02] MEDS: diphenhydrAMINE 50 MG/ML 1 ML VIAL IVP STA (02:05)
[2024-06-02] MEDS: DEXAMETHASONE SOD PHOSPHATE 10 MG/ML 1 ML VIAL IVP STA (02:05)
[2024-06-02] MEDS: SODIUM CHLORIDE 0.9% 500 ML 500 ML IV STA (02:06)
[2024-06-02 02:14] LABS: Basophils % (A) 0 %; Eosinophils # (A) 0.1 k/uL (0-0.7); Eosinophils % (A) 1 %; HGB 15.3 gm/dL (11.4-16.0); Lymphocytes # (A) 2.4 k/uL (1.0-4.8); Lymphocytes % (A) 21 %; MCH 29.5 pg (25.0-35.0); MCHC 32.4 g/dL (31.0-37.0); MCV 90.8 fL (80.0-100.0); Mean Platelet Volume 7.9; Monocytes # (A) 0.5 k/uL (0-1.0); Monocytes % (A) 4 %; Neutrophils # (A) 8.1 k/uL (1.3-7.7); Neutrophils % (A) 72 %; Platelet Count 349 k/uL (150-450); RBC 5.18 m/uL (3.80-5.40); RDW 13.7 % (11.5-15.5); WBC 11.3 k/uL (3.8-10.6)
[2024-06-02] MEDS: TRANEXAMIC 1,000 MG/100ML-NACL 1,000 MG in SALINE 1 100ML.BAG IV STA (02:26)
--- NOTE | 2024-06-02 02:29 | ED ---
Allergic Reaction HPI - General Chief complaint: Allergic Reaction Stated complaint: tongue swelling Time Seen by Provider: 06/02/24 01:17 Source: patient, RN notes reviewed, old records reviewed Mode of arrival: ambulatory - History of Present Illness Initial Comments: This is a 48-year-old female to the ER for evaluation of significant left-sided tongue swelling. The symptoms began tonight and have worsened despite taking Benadryl at home. Patient does take lisinopril for elevated blood pressure. No history of of lip swelling or tongue swelling in the past. Unknown other allergic exposure. No shortness of breath MD Complaint: allergic reaction, other (Tongue swelling) -: hour(s) Symptoms: difficulty swallowing, orolingual swelling Severity: moderate Treatment Prior to Arrival: benadryl Previous Allergy History: none - Related Data Home Medications Medication Instructions Recorded Confirmed Levothyroxine Sodium [Synthroid] 150 mcg PO DAILY 04/15/20 01/28/24 Omeprazole 40 mg PO HS 04/15/20 01/28/24 Lisinopril/Hydrochlorothiazide 1 tab PO HS 03/06/23 01/28/24 [Zestoretic 10-12.5] Ascorbic Acid/Collagen Hydr 1 cap PO DAILY 01/28/24 01/28/24 [Collagen Plus Vit C Capsule] Loratadine [Claritin] 10 mg PO HS 01/28/24 01/28/24 Multivitamins, Thera [Multivitamin 1 tab PO DAILY 01/28/24 01/28/24 (formulary)] [place]-3/Dha/Epa/Fish Oil [[place]-3 1 cap PO DAILY 01/28/24 01/28/24 Fish Oil 1,000 mg Sfgl] Tirzepatide [Mounjaro] 10 mg SQ ASENCIO 01/28/24 01/28/24 norethindrone-e.estradioL-iron 1 tab PO HS 01/28/24 01/28/24 [Aurovela Fe 1-20 Tablet] Previous Rx's Medication Instructions Recorded Acetaminophen Tab [Tylenol] 650 mg PO Q6HR PRN tab 01/29/24 Famotidine [Pepcid] 40 mg PO BID #20 tab 06/02/24 Losartan [Cozaar] 50 mg PO DAILY #60 tab 06/02/24 hydrOXYzine HCL [Atarax] 25 mg PO TID #14 tab 06/02/24 predniSONE 50 mg PO DAILY #5 tab 06/02/24 Allergies Allergy/AdvReac Type Severity Reaction Status Date / Time tramadol [From Ultram] AdvReac Nausea & Verified 06/02/24 01:09 Vomiting Review of Systems ROS Statement: Those systems with pertinent positive or pertinent negative responses have been documented in the HPI. ROS Other: All systems not noted in ROS Statement are negative. Past Medical History Past Medical History: Diabetes Mellitus, GERD/Reflux, Hypertension, Thyroid Disorder Additional Past Medical History / Comment(s): HIATAL HERNIA History of Any Multi-Drug Resistant Organisms: None Reported Past Surgical History: Adenoidectomy, Section, Cholecystectomy, Tonsillectomy, Uterine Ablation Additional Past Surgical History / Comment(s): GANGLION CYST RT WRIST X 2 Past Anesthesia/Blood Transfusion Reactions: Previous Problems w/ Anesthesia Additional Past Anesthesia/Blood Transfusion Reaction / Comment(s): SEVERE MUSCLE CRAMPING AFTER UTERINE ABLATION 2020 Past Psychological History: Depression Smoking Status: Former smoker Past Alcohol Use History: Rare Past Drug Use History: Marijuana - Past Family History Father Family Medical History: Cancer Additional Family Medical History / Comment(s): RARE BONE CANCER General Exam General appearance: alert, in no apparent distress Head exam: Present: atraumatic, normocephalic, normal inspection Eye exam: Present: normal appearance, PERRL, EOMI. Absent: scleral icterus, conjunctival injection, periorbital swelling ENT exam: Present: normal exam, mucous membranes moist Neck exam: Present: normal inspection. Absent: tenderness, meningismus, lymphadenopathy Respiratory exam: Present: normal lung sounds bilaterally. Absent: respiratory distress, wheezes, rales, rhonchi, stridor Cardiovascular Exam: Present: regular rate, normal rhythm, normal heart sounds. Absent: systolic murmur, diastolic murmur, rubs, gallop, clicks GI/Abdominal exam: Present: soft, normal bowel sounds. Absent: distended, tenderness, guarding, rebound, rigid Extremities exam: Present: normal inspection, full ROM, normal capillary refill. Absent: tenderness, pedal edema, joint swelling, calf tenderness Back exam: Present: normal inspection Neurological exam: Present: alert, oriented X3, CN II-XII intact Psychiatric exam: Present: normal affect, normal mood Skin exam: Present: warm, dry, intact, normal color. Absent: rash Course Vital Signs 06/02/24 06/02/24 06/02/24 01:06 01:09 03:00 Temperature 97.9 F Pulse Rate 100 91 Respiratory 18 16 Rate Blood Pressure 168/96 134/87 O2 Sat by Pulse 97 96 97 Oximetry 06/02/24 04:21 Temperature 98.4 F Pulse Rate 95 Respiratory 18 Rate Blood Pressure 142/84 O2 Sat by Pulse 97 Oximetry - Reevaluation(s) Reevaluation #1: 06/02/24 02:56 Medical records reviewed Patient does take lisinopril last dose was yesterday Reevaluation #2: 06/02/24 02:56 Patient is showing no improvement here in the ER Reevaluation #3: 06/02/24 04:04 Patient informed of results questions answered Will stop lisinopril Reevaluation #4: Was pt. sent in by a medical professional or institution (, [facility], [facility], urgent care, hospital, or correction...) When possible be specific @ -no Did you speak to anyone other than the patient for history (EMS, parent, family, police, friend...)? What history was obtained from this source @ -no Did you review nursing and triage notes (agree or disagree)? Why? @ -agree Are old charts reviewed (outside hosp., previous admission, EMS record, old EKG, old radiological studies, urgent care reports/EKG's, correction records)? Report findings @ -yes Differential Diagnosis (chest pain, altered mental status, abdominal pain women, abdominal pain men, vaginal bleeding, weakness, fever, dyspnea, syncope, headache, dizziness, GI bleed, back pain, seizure, CVA, palpatations, mental health, musculoskeletal)? @ -prior EKG interpreted by me (3pts min.). @ -no X-rays interpreted by me (1pt min.). @ -no CT interpreted by me (1pt min.). @ -no U/S interpreted by me (1pt. min.). @ -no What testing was considered but not performed or refused? (CT, X-rays, U/S, labs)? Why? @ -none What meds were considered but not given or refused? Why? @ -none Did you discuss the management of the patient with other professionals (p [facility] i.e. Dr., PA, [facility], lab, RT, psych nurse, social work therapist, oil processing technician, teacher, correctional officer chief, watch caser)? Give summary @ -no Was smoking cessation discussed for >3mins.? @ -no Was critical care preformed (if so, how long)? @ -no Were there social determinants of health that impacted care today? How? (Homelessness, low income, unemployed, alcoholism, drug addiction, transportation, low edu. Level, literacy, decrease access to med. care, senior living, rehab)? @ -none Was there de-escalation of care discussed even if they declined (Discuss DNR or withdrawal of care, Hospice)? DNR status @ -no What co-morbidities impacted this encounter? (DM, HTN, Smoking, COPD, CAD, Cancer, CVA, ARF, Chemo, Hep., AIDS, mental health diagnosis, sleep apnea, morbid obesity)? @ -none Was patient admitted / discharged? Hospital course, mention meds given and route, prescriptions, significant lab abnormalities, going to OR and other pertinent info. @ - 48 Female to ER for evaluation, angioedema found, stop lisinopril start new blood pressure medication and patient can be discharged home Discharge Undiagnosed new problem with uncertain prognosis? @ -no Drug Therapy requiring intensive monitoring for toxicity (Heparin, Nitro, Insulin, Cardizem)? @ -no Were any procedures done? @ -no Diagnosis/symptom? @ -Angioedema Acute, or Chronic, or Acute on Chronic? @ -Acute Uncomplicated (without systemic symptoms) or Complicated (systemic symptoms)? @ -Complicated Side effects of treatment? @ -no Exacerbation, Progression, or Severe Exacerbation? @ -exacerbation Poses a threat to life or bodily function? How? (Chest pain, [place], PR, pneumonia, PE, COPD, DKA, ARF, appy, cholecystitis, CVA, Diverticulitis, Homicidal, Suicidal, threat to staff... and all critical care pts) @ -yes with angioedema Medical Decision Making - Medical Decision Making 48 Female to ER for evaluation, angioedema found, stop lisinopril start new blood pressure medication and patient can be discharged home - Lab Data Result diagrams: 06/02/24 01:24 06/02/24 01:24 Lab Results 06/02/24 06/02/24 Range/Units 01:24 01:24 WBC 11.3 H (3.8-10.6) k/uL RBC 5.18 (3.80-5.40) m/uL Hgb 15.3 (11.4-16.0) gm/dL Hct 47.0 H (34.0-46.0) % MCV 90.8 (80.0-100.0) fL MCH 29.5 (25.0-35.0) pg MCHC 32.4 (31.0-37.0) g/dL RDW 13.7 (11.5-15.5) % Plt Count 349 (150-450) k/uL MPV 7.9 Neutrophils % 72 % Lymphocytes % 21 % Monocytes % 4 % Eosinophils % 1 % Basophils % 0 % Neutrophils # 8.1 H (1.3-7.7) k/uL Lymphocytes # 2.4 (1.0-4.8) k/uL Monocytes # 0.5 (0-1.0) k/uL Eosinophils # 0.1 (0-0.7) k/uL Basophils # 0.0 (0-0.2) k/uL Sodium 135 L (137-145) mmol/L Potassium 4.3 (3.5-5.1) mmol/L Chloride 101 (98-107) mmol/L Carbon Dioxide 23 (22-30) mmol/L Anion Gap 11 mmol/L BUN 12 (7-17) mg/dL Creatinine 0.85 (0.52-1.04) mg/dL Est GFR (CKD-EPI)AfAm >90 (>60 ml/min/1.73 sqM) Est GFR (CKD-EPI)NonAf 80 (>60 ml/min/1.73 sqM) Glucose 103 H (74-99) mg/dL Calcium 9.7 (8.4-10.2) mg/dL Total Bilirubin 0.6 (0.2-1.3) mg/dL AST 25 (14-36) U/L ALT 28 (4-34) U/L Alkaline Phosphatase 72 (38-126) U/L Total Protein 7.4 (6.3-8.2) g/dL Albumin 4.2 (3.5-5.0) g/dL Disposition Clinical Impression: Allergic reaction, Allergic reaction to drug, Angioedema Disposition: HOME SELF-CARE Instructions (If sedation given, give patient instructions): Angioedema (ED) Prescriptions: hydrOXYzine HCL [Atarax] 25 mg PO TID #14 tab Losartan [Cozaar] 50 mg PO DAILY #60 tab Famotidine [Pepcid] 40 mg PO BID #20 tab predniSONE 50 mg PO DAILY #5 tab Is patient prescribed a controlled substance at d/c from ED?: No Referrals: Tha Valle DO [Primary Care Provider] - 1-2 days Time of Disposition: 04:00
[2024-06-02 02:45] LABS: ALT 28 U/L (4-34); AST 25 U/L (14-36); African American GFR (CKD) >90 (>60 ml/min/1.73 sqM); Albumin 4.2 g/dL (3.5-5.0); Alkaline Phosphatase 72 U/L (38-126); Anion Gap 11 mmol/L; Blood Urea Nitrogen 12 mg/dL (7-17); Calcium 9.7 mg/dL (8.4-10.2); Carbon Dioxide 23 mmol/L (22-30); Chloride 101 mmol/L (98-107); Glucose 103 mg/dL (74-99); Non-African American GFR(CKD) 80 (>60 ml/min/1.73 sqM); Potassium 4.3 mmol/L (3.5-5.1); Sodium 135 mmol/L (137-145); Total Bilirubin 0.6 mg/dL (0.2-1.3); Total Protein 7.4 g/dL (6.3-8.2)
[2024-06-02] MEDS: LOSARTAN 50 MG TAB PO STA (04:18)
[2024-06-02] MEDS: predniSONE 20 MG TAB PO STA (04:19)
[2024-06-02] MEDS: hydrOXYzine HCL 25 MG TAB PO STA (04:20)
[2024-06-02 04:22] VITALS: BP 142/84; PULSE 95; RESP 18; TEMP 98.4
== END 2024-06-02 04:27 | disposition home or self-care (01) ==
LOC: EC 00:58
DX: T78.3XXA Angioneurotic edema, initial encounter (principal); Z87.891 Personal history of nicotine dependence; Z88.5 Allergy status to narcotic agent
CPT/HCPCS: 36415; 80053; 85025; 99283; 96374; 96375; J1200; J1100; J3490; J7512